=== PATIENT | female | born 1960 | race Caucasian/White ===

== ENCOUNTER 2016-09-12 06:58 | Emergency (ER) | payer OTHER ==
[2016-09-12] MEDS ORDERED: METHOCARBAMOL 1,000 MG/10 ML VIAL (J2800) As Ordered ONE (08:23)
[2016-09-12] MEDS ORDERED: KETOROLAC 30 MG/ML VIAL (J1885) As Ordered ONE (08:23)
--- NOTE | 2016-09-12 09:50 | EDDOCDS ---
Nurse's Notes [facility] Name: Megan Zamora Age: 56 yrs Sex: Female : 1960 Arrival Date: 09/12/2016 Time: 06:58 Bed TR7 Private MD: Mando Sue E. Diagnosis: Low back pain Presentation: 09/12 07:05 Presenting complaint: Patient states: Low back pain began after lifting three days ago. mlb1 Acute neurological deficits are not present. Mechanism of Injury: Lifting. Adult Sepsis Screening: The patient does not have new or worsening altered mentation. Patient's respiratory rate is less than 22. Systolic blood pressure is greater than 100. Patient has a qSOFA score of 0- Negative Sepsis Screen. Suicide/Homicide risk assessment- the patient denies having any suicidal and/or homicidal ideations and does not present with any other emotional, behavioral or mental health complaints. Status: Patient is not a track service worker or dependent. Transition of care: patient was not received from another setting of care. 07:05 Acuity: BEBO Level 4 mlb1 07:05 Method Of Arrival: Walkin/Carried/Asstd mlb1 Triage Assessment: 07:11 General: Appears uncomfortable, Behavior is appropriate for age, cooperative. Pain: mlb1 Location: low back area Pain currently is 10 out of 10 on a pain scale. HIV screening NA for this visit Offered previously. QUALITY CONTROL LAB TECH: 07:10 LMP N/A - Post-menopause mlb1 Historical: - Allergies: PENICILLINS (itching); - Home Meds: 1. chlorthalidone 25 mg Oral tab 1 tab once daily 2. enalapril maleate 20 mg Oral tab 1 tab once daily 3. fluoxetine 20 mg oral cap 1 cap once daily 4. duloxetine 60 mg Oral cpDR 1 cap once daily 5. omeprazole 40 mg Oral cpDR 2 times per day 6. amlodipine 5 mg Oral tab 1 tab once daily 7. Lialda 1.2 gram oral TbEC 3 tabs once daily 8. Aleve 220 mg Oral tab 1 tab every 12 hours (Last dose: 09/11/2016 20:00) - PMHx: Depression; GERD; Hypertension; Ulcerative Colitis; - PSHx: Appendectomy; Tonsillectomy; - Social history: Smoking status: Patient states was never smoker of tobacco. No barriers to communication noted, The patient speaks fluent Wolof, Speaks appropriately for age. - Family history: Not pertinent. - : The pt / caregiver states he / she is not on anticoagulants. Home medication list is obtained from the patient. - Exposure Risk Screening:: None identified. Screenin:48 Screening information is obtained from the patient. Fall risk: No risks identified. dsf Assistance ADL's: requires no assistance with activities of daily living. Abuse/DV Screen: The patient / caregiver reports he/she is: not in a situation that causes fear, pain or injury. Nutritional screening: No deficits noted. Advance Directives: Currently, there is no health care proxy. home support is adequate. Assessment: 09:48 General: Appears in no apparent distress, Behavior is appropriate for age, cooperative. dsf Neurological: Level of Consciousness is awake, alert. Cardiovascular: Capillary refill < 3 seconds. Respiratory: Airway is patent Respiratory effort is even, unlabored, Respiratory pattern is regular, symmetrical. Derm: Skin is pink, warm & dry. Musculoskeletal: Reports pain in low back area. Vital Signs: 07:10 BP 120 / 72; Pulse 112; Resp 16; Temp 98.1(TE); Pulse Ox 100% on R/A; Weight 89.81 kg mlb1 (R); Height 5 ft. 4 in. (162.56 cm) (R); Pain 10/10; 09:01 BP 122 / 75; Pulse 75; Resp 18; Temp 97.4(O); Pulse Ox 98% on R/A; Pain 10/10; ct3 07:10 Body Mass Index 33.99 (89.81 kg, 162.56 cm) [facility] ED Course: 06:59 Patient visited by Almita Butler. lja 06:59 Mando Sue is Private Physician. lja 06:59 Patient moved to Waiting lja 07:05 Patient visited by Tde Vences, VIOLETA. mlb1 07:06 Triage Initiated mlb1 07:11 Patient visited by Ted Vences, VIOLETA. mlb1 07:58 Jean Crespo PA is PHCP. btw 07:58 Julissa Paiz MD is Attending Physician. btw 07:58 Patient visited by Jean Crespo PA. btw 07:58 Patient moved to Triage 2 btw 08:30 Patient moved to PD2 / 27 mlb1 09:02 Patient visited by Christen Tovar PCA. ct3 09:35 Mando Sue is Referral Physician. btw 09:48 The patient / caregiver is instructed regarding the plan of care and ED course. dsf 09:48 No IV's were initiated during this patient's visit. No procedures done that require dsf assistance. 09:49 Patient moved to TR7 ct3 Administered Medications: 08:30 Drug: ketorolac 30 mg [ketorolac 30 mg/mL (1 mL) injection solution (1 mL)] Route: IM; mlb1 Site: left deltoid; 08:30 Drug: Robaxin 250 mg [Robaxin 100 mg/mL injection solution (2.5 mL)] Route: IM; Site: mlb1 right gluteus; Order Results: There are currently no results for this order. Outcome: 09:36 Discharge ordered by Provider. btw 09:48 Discharge Assessment: Patient awake, alert and oriented x 3. No cognitive and/or dsf functional deficits noted. Patient verbalized understanding of disposition instructions. patient administered narcotics - no. The following High Risk Discharge criteria are identified: None. Discharged to home ambulatory. Condition: stable. Discharge instructions given to patient, Instructed on discharge instructions, follow up and referral plans. medication usage, no driving heavy equipment, Demonstrated understanding of instructions, medications, Pt was receptive of discharge instructions/ teaching. Prescriptions given X 2. No special radiology studies were completed. Property sent home with patient. 09:49 Patient left the ED. dsf Signatures: Ted Vences RN RN mlb1 Jean Crespo PA PA btw Christen Tovar PCA REFRIGERATION OPERATOR ct3 Marlyn Luo RN RN dsf Almita Butler MTDD
--- NOTE | 2016-09-12 09:50 | EDDOCDS ---
Physician Documentation [facility] Name: Megan Zamora Age: 56 yrs Sex: Female : 1960 Arrival Date: 09/12/2016 Time: 06:58 Bed TR7 Private MD: Mando Sue E. Disposition: 09/12/16 09:36 Discharged to Home/Self Care. Impression: Low back pain. - Condition is Stable. - Discharge Instructions: Back Injury Prevention, Opig-[id number], Back Pain, Adult, Eife-cx-Ymmh. - Prescriptions for Medrol (Sanchez) 4 mg Oral Tablets, Dose Pack - take 1 Pack by ORAL route as directed - follow package instructions; 1 packet. Robaxin- 750 750 mg Oral Tablet - take 1 tablet by ORAL route every 6 hours As needed; 40 tablet. - Medication Reconciliation, Local Pharmacy Hours form. - Follow up: Mando Sue; When: Call to arrange an appointment; Reason: Further diagnostic work-up, Recheck today's complaints, Continuance of care. - Problem is an acute exacerbation. - Symptoms have improved. Historical: - Allergies: PENICILLINS (itching); - Home Meds: 1. chlorthalidone 25 mg Oral tab 1 tab once daily 2. enalapril maleate 20 mg Oral tab 1 tab once daily 3. fluoxetine 20 mg oral cap 1 cap once daily 4. duloxetine 60 mg Oral cpDR 1 cap once daily 5. omeprazole 40 mg Oral cpDR 2 times per day 6. amlodipine 5 mg Oral tab 1 tab once daily 7. Lialda 1.2 gram oral TbEC 3 tabs once daily 8. Aleve 220 mg Oral tab 1 tab every 12 hours (Last dose: 09/11/2016 20:00) - PMHx: Depression; GERD; Hypertension; Ulcerative Colitis; - PSHx: Appendectomy; Tonsillectomy; - Social history: Smoking status: Patient states was never smoker of tobacco. No barriers to communication noted, The patient speaks fluent Irish, Speaks appropriately for age. - Family history: Not pertinent. - : The pt / caregiver states he / she is not on anticoagulants. Home medication list is obtained from the patient. - Exposure Risk Screening:: None identified. 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 4 in. (162.56 cm) (R); Pain 10; 09:01 BP 122 / 75; Pulse 75; Resp 18; Temp 97.4(O); Pulse Ox 98% on R/A; Pain 10; ct3 07:10 Body Mass Index 33.99 (89.81 kg, 162.56 cm) mlb1 MDM: 08:03 ketorolac 30 mg IM once ordered. btw 08:03 Robaxin 250 mg IM once ordered. btw 08:44 Financial registration complete. lg Administered Medications: 08:30 Drug: ketorolac 30 mg [ketorolac 30 mg/mL (1 mL) injection solution (1 mL)] Route: IM; mlb1 Site: left deltoid; 08:30 Drug: Robaxin 250 mg [Robaxin 100 mg/mL injection solution (2.5 mL)] Route: IM; Site: mlb1 right gluteus; Signatures: Malik Garcias, Reg Reg lg Ted Vences RN RN mlb1 Jean Crespo PA PA btw Marlyn Luo,RN RN dsf MTDD
--- NOTE | 2016-09-14 10:50 | EDDOCDS ---
Nurse's Notes [facility] Name: Megan Zamora Age: 56 yrs Sex: Female : 1960 Arrival Date: 09/12/2016 Time: 06:58 Bed TR7 Private MD: Mando Sue E. Diagnosis: Low back pain Presentation: 09/12 07:05 Presenting complaint: Patient states: Low back pain began after lifting three days ago. mlb1 Acute neurological deficits are not present. Mechanism of Injury: Lifting. Adult Sepsis Screening: The patient does not have new or worsening altered mentation. Patient's respiratory rate is less than 22. Systolic blood pressure is greater than 100. Patient has a qSOFA score of 0- Negative Sepsis Screen. Suicide/Homicide risk assessment- the patient denies having any suicidal and/or homicidal ideations and does not present with any other emotional, behavioral or mental health complaints. Status: Patient is not a security services manager or dependent. Transition of care: patient was not received from another setting of care. 07:05 Acuity: BEBO Level 4 mlb1 07:05 Method Of Arrival: Walkin/Carried/Asstd mlb1 Triage Assessment: 07:11 General: Appears uncomfortable, Behavior is appropriate for age, cooperative. Pain: mlb1 Location: low back area Pain currently is 10 out of 10 on a pain scale. HIV screening NA for this visit Offered previously. 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 chlorthalidone 25 mg Oral tab 1 tab once daily 2. enalapril maleate 20 mg Oral tab 1 tab once daily 3. fluoxetine 20 mg oral cap 1 cap once daily 4. duloxetine 60 mg Oral cpDR 1 cap once daily 5. omeprazole 40 mg Oral cpDR 2 times per day 6. amlodipine 5 mg Oral tab 1 tab once daily 7. Lialda 1.2 gram oral TbEC 3 tabs once daily 8. Aleve 220 mg Oral tab 1 tab every 12 hours (Last dose: 09/11/2016 20:00) - PMHx: Depression; GERD; Hypertension; Ulcerative Colitis; - PSHx: Appendectomy; Tonsillectomy; - Social history: Smoking status: Patient states was never smoker of tobacco. No barriers to communication noted, The patient speaks fluent German, Speaks appropriately for age. - Family history: Not pertinent. - : The pt / caregiver states he / she is not on anticoagulants. Home medication list is obtained from the patient. - Exposure Risk Screening:: None identified. Screenin:48 Screening information is obtained from the patient. Fall risk: No risks identified. dsf Assistance ADL's: requires no assistance with activities of daily living. Abuse/DV Screen: The patient / caregiver reports he/she is: not in a situation that causes fear, pain or injury. Nutritional screening: No deficits noted. Advance Directives: Currently, there is no health care proxy. home support is adequate. Assessment: 09:48 General: Appears in no apparent distress, Behavior is appropriate for age, cooperative. dsf Neurological: Level of Consciousness is awake, alert. Cardiovascular: Capillary refill < 3 seconds. Respiratory: Airway is patent Respiratory effort is even, unlabored, Respiratory pattern is regular, symmetrical. Derm: Skin is pink, warm & dry. Musculoskeletal: Reports pain in low back area. Vital Signs: 07:10 BP 120 / 72; Pulse 112; Resp 16; Temp 98.1(TE); Pulse Ox 100% on R/A; Weight 89.81 kg mlb1 (R); Height 5 ft. 4 in. (162.56 cm) (R); Pain 10/10; 09:01 BP 122 / 75; Pulse 75; Resp 18; Temp 97.4(O); Pulse Ox 98% on R/A; Pain 10/10; ct3 07:10 Body Mass Index 33.99 (89.81 kg, 162.56 cm) [facility] ED Course: 06:59 Patient visited by Almita Butler. lja 06:59 Mando Sue is Private Physician. lja 06:59 Patient moved to Waiting lja 07:05 Patient visited by Ted Vences, VIOLETA. mlb1 07:06 Triage Initiated mlb1 07:11 Patient visited by Ted Vences, VIOLETA. mlb1 07:58 Jean Crespo PA is PHCP. btw 07:58 Julissa Paiz MD is Attending Physician. btw 07:58 Patient visited by Jean Crespo PA. btw 07:58 Patient moved to Triage 2 btw 08:30 Patient moved to PD2 / 27 mlb1 09:02 Patient visited by Christen Tovar PCA. ct3 09:35 Mando Sue is Referral Physician. btw 09:48 The patient / caregiver is instructed regarding the plan of care and ED course. dsf 09:48 No IV's were initiated during this patient's visit. No procedures done that require dsf assistance. 09:49 Patient moved to TR7 ct3 11:40 [facility] Payment Agreement was scanned into [employer] and attached to record. lg 14:56 T-Sheet-- Draft Copy was scanned into [employer] and attached to record. gb Administered Medications: 08:30 Drug: ketorolac 30 mg [ketorolac 30 mg/mL (1 mL) injection solution (1 mL)] Route: IM; mlb1 Site: left deltoid; 08:30 Drug: Robaxin 250 mg [Robaxin 100 mg/mL injection solution (2.5 mL)] Route: IM; Site: mlb1 right gluteus; Order Results: There are currently no results for this order. Outcome: 09:36 Discharge ordered by Provider. btw 09:48 Discharge Assessment: Patient awake, alert and oriented x 3. No cognitive and/or dsf functional deficits noted. Patient verbalized understanding of disposition instructions. patient administered narcotics - no. The following High Risk Discharge criteria are identified: None. Discharged to home ambulatory. Condition: stable. Discharge instructions given to patient, Instructed on discharge instructions, follow up and referral plans. medication usage, no driving heavy equipment, Demonstrated understanding of instructions, medications, Pt was receptive of discharge instructions/ teaching. Prescriptions given X 2. No special radiology studies were completed. Property sent home with patient. 09:49 Patient left the ED. dsf Signatures: Gill Jurado, Reg Reg gb Malik Garcias, Reg Reg lg Ted Vences RN RN mlb1 Jean Crespo PA PA btw Christen Tovar PCA HORSE RACING ANALYST ct3 Marlyn Luo RN RN dsf Almita Butler Chart Complete MTDD
--- NOTE | 2016-09-14 10:50 | EDDOCDS ---
Physician Documentation [facility] Name: Megan Zamora Age: 56 yrs Sex: Female : 1960 Arrival Date: 09/12/2016 Time: 06:58 Bed TR7 Private MD: Mando Sue E. Disposition: 09/12/16 09:36 Discharged to Home/Self Care. Impression: Low back pain. - Condition is Stable. - Discharge Instructions: Back Injury Prevention, Diev-ql-Yxmg, Back Pain, Adult, Wfym-vv-Jvtl. - Prescriptions for Medrol (Sanchez) 4 mg Oral Tablets, Dose Pack - take 1 Pack by ORAL route as directed - follow package instructions; 1 packet. Robaxin- 750 750 mg Oral Tablet - take 1 tablet by ORAL route every 6 hours As needed; 40 tablet. - Medication Reconciliation, Local Pharmacy Hours form. - Follow up: Mando Sue; When: Call to arrange an appointment; Reason: Further diagnostic work-up, Recheck today's complaints, Continuance of care. - Problem is an acute exacerbation. - Symptoms have improved. Historical: - Allergies: PENICILLINS (itching); - Home Meds: 1. chlorthalidone 25 mg Oral tab 1 tab once daily 2. enalapril maleate 20 mg Oral tab 1 tab once daily 3. fluoxetine 20 mg oral cap 1 cap once daily 4. duloxetine 60 mg Oral cpDR 1 cap once daily 5. omeprazole 40 mg Oral cpDR 2 times per day 6. amlodipine 5 mg Oral tab 1 tab once daily 7. Lialda 1.2 gram oral TbEC 3 tabs once daily 8. Aleve 220 mg Oral tab 1 tab every 12 hours (Last dose: 09/11/2016 20:00) - PMHx: Depression; GERD; Hypertension; Ulcerative Colitis; - PSHx: Appendectomy; Tonsillectomy; - Social history: Smoking status: Patient states was never smoker of tobacco. No barriers to communication noted, The patient speaks fluent Amharic, Speaks appropriately for age. - Family history: Not pertinent. - : The pt / caregiver states he / she is not on anticoagulants. Home medication list is obtained from the patient. - Exposure Risk Screening:: None identified. FUR POLISHER: 09/12 07:10 LMP N/A - Post-menopause mlb1 Vital Signs: 07:10 BP 120 / 72; Pulse 112; Resp 16; Temp 98.1(TE); Pulse Ox 100% on R/A; Weight 89.81 kg / mlb1 198 lbs (R); Height 5 ft. 4 in. (162.56 cm) (R); Pain 10/10; 09:01 BP 122 / 75; Pulse 75; Resp 18; Temp 97.4(O); Pulse Ox 98% on R/A; Pain 10/10; ct3 07:10 Body Mass Index 33.99 (89.81 kg, 162.56 cm) mlb1 MDM: 08:03 ketorolac 30 mg IM once ordered. btw 08:03 Robaxin 250 mg IM once ordered. btw 08:44 Financial registration complete. lg 11:40 [facility] Payment Agreement was scanned into [employer] and attached to record. lg 14:56 T-Sheet-- Draft Copy was scanned into [employer] and attached to record. gb Administered Medications: 08:30 Drug: ketorolac 30 mg [ketorolac 30 mg/mL (1 mL) injection solution (1 mL)] Route: IM; mlb1 Site: left deltoid; 08:30 Drug: Robaxin 250 mg [Robaxin 100 mg/mL injection solution (2.5 mL)] Route: IM; Site: mlb1 right gluteus; Signatures: Gill Jurado, Reg Reg gb Malik Garcias, Reg Reg lg Ted Vences RN RN mlb1 Jean Crespo PA PA btw Marlyn LuoRN RN dsf The chart was reviewed and I authenticate all verbal orders and agree with the evaluation and treatment provided.Attachments: 11:40 [facility] Payment Agreement lg 14:56 T-Sheet-- Draft Copy gb Chart Complete MTDD
--- NOTE | 2016-09-14 10:50 | EDDOCDS ---
Physician Documentation [facility] Name: Megan Zamora Age: 56 yrs Sex: Female : 1960 Arrival Date: 09/12/2016 Time: 06:58 Bed TR7 Private MD: Mando Sue E. Disposition: 09/12/16 09:36 Discharged to Home/Self Care. Impression: Low back pain. - Condition is Stable. - Discharge Instructions: Back Injury Prevention, Vrod-xn-Yxqs, Back Pain, Adult, Vper-dl-Peiz. - Prescriptions for Medrol (Sanchez) 4 mg Oral Tablets, Dose Pack - take 1 Pack by ORAL route as directed - follow package instructions; 1 packet. Robaxin- 750 750 mg Oral Tablet - take 1 tablet by ORAL route every 6 hours As needed; 40 tablet. - Medication Reconciliation, Local Pharmacy Hours form. - Follow up: Mando Sue; When: Call to arrange an appointment; Reason: Further diagnostic work-up, Recheck today's complaints, Continuance of care. - Problem is an acute exacerbation. - Symptoms have improved. Historical: - Allergies: PENICILLINS (itching); - Home Meds: 1. chlorthalidone 25 mg Oral tab 1 tab once daily 2. enalapril maleate 20 mg Oral tab 1 tab once daily 3. fluoxetine 20 mg oral cap 1 cap once daily 4. duloxetine 60 mg Oral cpDR 1 cap once daily 5. omeprazole 40 mg Oral cpDR 2 times per day 6. amlodipine 5 mg Oral tab 1 tab once daily 7. Lialda 1.2 gram oral TbEC 3 tabs once daily 8. Aleve 220 mg Oral tab 1 tab every 12 hours (Last dose: 09/11/2016 20:00) - PMHx: Depression; GERD; Hypertension; Ulcerative Colitis; - PSHx: Appendectomy; Tonsillectomy; - Social history: Smoking status: Patient states was never smoker of tobacco. No barriers to communication noted, The patient speaks fluent Serbian, Speaks appropriately for age. - Family history: Not pertinent. - : The pt / caregiver states he / she is not on anticoagulants. Home medication list is obtained from the patient. - Exposure Risk Screening:: None identified. REGRINDER: 09/12 07:10 LMP N/A - Post-menopause mlb1 Vital Signs: 07:10 BP 120 / 72; Pulse 112; Resp 16; Temp 98.1(TE); Pulse Ox 100% on R/A; Weight 89.81 kg / mlb1 198 lbs (R); Height 5 ft. 4 in. (162.56 cm) (R); Pain 10/10; 09:01 BP 122 / 75; Pulse 75; Resp 18; Temp 97.4(O); Pulse Ox 98% on R/A; Pain 10/10; ct3 07:10 Body Mass Index 33.99 (89.81 kg, 162.56 cm) mlb1 MDM: 08:03 ketorolac 30 mg IM once ordered. btw 08:03 Robaxin 250 mg IM once ordered. btw 08:44 Financial registration complete. lg 11:40 [facility] Payment Agreement was scanned into [employer] and attached to record. lg 14:56 T-Sheet-- Draft Copy was scanned into [employer] and attached to record. gb Administered Medications: 08:30 Drug: ketorolac 30 mg [ketorolac 30 mg/mL (1 mL) injection solution (1 mL)] Route: IM; mlb1 Site: left deltoid; 08:30 Drug: Robaxin 250 mg [Robaxin 100 mg/mL injection solution (2.5 mL)] Route: IM; Site: mlb1 right gluteus; Signatures: Gill Jurado, Reg Reg gb Malik Garcias, Reg Reg lg Ted Vences RN RN mlb1 Jean Crespo PA PA btw Marlyn LuoRN RN dsf The chart was reviewed and I authenticate all verbal orders and agree with the evaluation and treatment provided.Attachments: 11:40 [facility] Payment Agreement lg 14:56 T-Sheet-- Draft Copy gb Chart Complete MTDD
== END 2016-09-12 09:49 | disposition home or self-care (01) ==
LOC: M ED 06:58
DX: M54.5 Low back pain (principal); G89.29 Other chronic pain; I10 Essential (primary) hypertension; F32.9 Major depressive disorder, single episode, unspecified; K21.9 Gastro-esophageal reflux disease without esophagitis; K51.90 Ulcerative colitis, unspecified, without complications; Z79.899 Other long term (current) drug therapy; Z88.0 Allergy status to penicillin
CPT/HCPCS: 96372; 99283; J1885; J2800

== ENCOUNTER → 2016-09-25 | Outpatient (CLI) | payer OTHER ==
--- NOTE | 2016-09-25 12:39 | REP ---
LUMBAR SPINE, FIVE VIEWS: HISTORY: Back pain. COMPARISON: 10/16/2015. There is no acute fracture. The L2-3 through L5-S1 intervertebral discs are decreased in height. Vacuum phenomenon is present at the L5-S1 level. These findings are consistent with disc degeneration. Osteophytes are present on L2-S1. There is narrowing of the L4-5 and L5-S1 facet joints. There are 3 mm of grade 1 spondylolisthesis of L4 on 5. IMPRESSION: Degenerative change as described above. Signed by Aubrey Bianchi MD 09/25/2016 12:46 P
--- NOTE | 2016-09-26 06:45 | REP ---
Clinical: Spondylosis Technique: AP, Caudal and cephalic, and lateral view. Findings: Bilateral sacroiliac joints demonstrate mild symmetric age-related periarticular sclerosis and essentially normal for age. Impression: Age-related changes. Signed by Giovany Elias MD 09/26/2016 06:36 A
== END ==
LOC: M SMT 10:56
PROVIDERS: ATTEND Family Medicine
DX: M47.816 Spondylosis without myelopathy or radiculopathy, lumbar region (principal); M51.36 Other intervertebral disc degeneration, lumbar region; M51.37 Other intervertebral disc degeneration, lumbosacral region

== ENCOUNTER → 2017-01-21 | Outpatient (CLI) | payer OTHER ==
[2017-01-21 13:19] LABS: BASO % 0.8 % (0.0-1.0); EOS # 0.2 K/mm3 (0.0-0.50); EOS % 2.6 % (0.0-3.0); LARGE UNSTAINED CELL # 0.1 K/mm3 (0.0-0.4); LARGE UNSTAINED CELL % 1.9 % (0.0-4.0); LYMPH # 2.5 K/mm3 (1.5-4.5); LYMPH % 37.4 % (24.0-44.0); MEAN CORPUSCULAR HEMOGLOBIN 30.9 pg (27.0-33.0); MEAN CORPUSCULAR HGB CONC 34.1 g/dl (32.0-36.5); MEAN CORPUSCULAR VOLUME 90.6 fl (80.0-96.0); MONO # 0.5 K/mm3 (0.0-0.8); MONO % 7.1 % (0.0-5.0); NEUTROPHILS # 3.3 K/mm3 (1.8-7.7); NEUTROPHILS % 50.2 % (36.0-66.0); PLATELET COUNT, AUTOMATED 286 k/mm3 (150-450); RED CELL DISTRIBUTION WIDTH 12.4 % (11.5-14.5); WHITE BLOOD COUNT 6.5 K/mm3 (4.0-10.0)
[2017-01-21 13:36] LABS: ALBUMIN 3.4 GM/DL (3.2-5.2); ALBUMIN/GLOBULIN RATIO 0.97 (1.00-1.93); ALKALINE PHOSPHATASE 57 U/L (45-117); ALT/SGPT 22 U/L (12-78); ANION GAP 9 MEQ/L (8-16); AST/SGOT 13 U/L (15-37); BILIRUBIN,TOTAL 0.5 MG/DL (0.2-1.0); BLOOD UREA NITROGEN 17 MG/DL (7-18); CALCIUM LEVEL 8.9 MG/DL (8.5-10.1); CARBON DIOXIDE LEVEL 32 MEQ/L (21-32); CHLORIDE LEVEL 94 MEQ/L (98-107); CREATININE FOR GFR 0.69 MG/DL (0.55-1.02); FERRITIN 29 NG/ML (8-252); GLOMERULAR FILTRATION RATE > 60.0 (>51); GLUCOSE, FASTING 99 MG/DL (70-105); POTASSIUM SERUM 3.5 MEQ/L (3.5-5.1); SODIUM LEVEL 135 MEQ/L (136-145); TOTAL IRON BINDING CAPACITY 400 UG/DL (250-450); TOTAL PROTEIN 6.9 GM/DL (6.4-8.2)
== END ==
LOC: M SMT 07:44
PROVIDERS: ATTEND Family Medicine
DX: R73.01 Impaired fasting glucose (principal); I10 Essential (primary) hypertension; D50.9 Iron deficiency anemia, unspecified

== ENCOUNTER → 2017-02-18 | Outpatient (CLI) | payer OTHER ==
--- NOTE | 2017-02-18 14:09 | REPMRS ---
Patient History The patient states she has not had a clinical breast exam in over a year. Family history of breast cancer in maternal aunt at age 80. Took hormonal contraceptives for 10 years. Digital Woman Screen Mammo: February 18, 2017 - Exam #: [id number] Bilateral CC and MLO view(s) were taken. Technologist: Jaky Burrell, Technologist Prior study comparison: July 25, 2015, digital woman screen mammo performed at [facility]. March 26, 2014, bilateral bilat screen digital mammo, performed at [facility] ([facility] FINDINGS: There are scattered fibroglandular densities. There has been no change in the appearance of the mammogram from the prior studies. There is a mild amount of residual fibroglandular tissue which is fairly symmetric. There is no interval development of dominant mass, architectural distortion, or clustered microcalcification suggestive of malignancy. ASSESSMENT: BI-RADS/ACR category 1 mammogram. Negative. Recommendation Routine screening mammogram in 1 year (for women over age 40). This mammogram was interpreted with the aid of an FDA-approved computer-aided dectection system. Electronically Signed By: Marek Knowles MD 02/18/17 [id number]
== END ==
LOC: M WHC 12:50
PROVIDERS: ATTEND Family Medicine
DX: Z12.31 Encounter for screening mammogram for malignant neoplasm of breast (principal); Z92.0 Personal history of contraception

== ENCOUNTER 2017-02-27 10:48 | Emergency (ER) | payer OTHER ==
[~2017-02-27] VITALS: Ht 162.6 cm; Wt 86.4 kg
[2017-02-27] MEDS ORDERED: MORPHINE 4 MG/ML 1ML SYRINGE IV ONE (11:15)
[2017-02-27] MEDS ORDERED: ONDANSETRON 4MG/2ML VIAL (J2405) IV ONE (11:15)
[2017-02-27] MEDS ORDERED: NASA1SPR (11:16)
[2017-02-27] MEDS ORDERED: METH75TA (11:16)
[2017-02-27] MEDS ORDERED: TIZA4CAP3 (11:16)
[2017-02-27] MEDS ORDERED: APRI0.37 (11:16)
[2017-02-27] MEDS ORDERED: AMLO5TAB2 (11:16)
[2017-02-27] MEDS ORDERED: FLUO20CA19 (11:16)
[2017-02-27] MEDS ORDERED: SUCR1TAB56 (11:16)
[2017-02-27] MEDS ORDERED: CHLO125TA (11:16)
[2017-02-27] MEDS ORDERED: HUMI40KI2 (11:16)
[2017-02-27] MEDS ORDERED: DULO1CAP3 (11:16)
[2017-02-27] MEDS ORDERED: MESA50SU (11:16)
[2017-02-27] MEDS ORDERED: ENAL20TA (11:16)
[2017-02-27] MEDS ORDERED: CEFD1CAP8 (11:16)
[2017-02-27] MEDS ORDERED: METH4PACK (11:16)
[2017-02-27] MEDS ORDERED: OMEP40CA2 (11:16)
[2017-02-27] MEDS ORDERED: LOSA100T36 (11:16)
--- NOTE | 2017-02-27 12:10 | REP ---
RIGHT ANKLE SERIES, FOUR VIEWS There is no evidence of an acute fracture, dislocation or intrinsic bone disease. The ankle mortise is anatomic. IMPRESSION: No fracture or dislocation. Signed by Marek Knowles MD 02/28/2017 05:08 P
[2017-02-27] MEDS ORDERED: NORCOTAB PO (12:30)
[2017-02-27 12:32] VITALS: BP 118/70
== END 2017-02-27 12:52 | disposition home or self-care (01) ==
LOC: EDBD 10:48 → M ED 12:08
DX: S93.401A Sprain of unspecified ligament of right ankle, initial encounter (principal); W10.8XXA Fall (on) (from) other stairs and steps, initial encounter; Y92.099 Unspecified place in other non-institutional residence as the place of occurrence of the external cause; Y93.01 Activity, walking, marching and hiking; Y99.9 Unspecified external cause status

== ENCOUNTER → 2017-04-01 | Outpatient (CLI) | payer OTHER ==
[~2017-04-01] MED LIST: AMLO5TAB2; APRI0.37; CEFD1CAP8; CHLO125TA; DULO1CAP3; ENAL20TA; FLUO20CA19; HUMI40KI2; LOSA100T36; MESA50SU; METH4PACK; METH75TA; NASA1SPR; NORCOTAB PO; OMEP40CA2; SUCR1TAB56; TIZA4CAP3
[2017-04-01 14:31] LABS: MEAN CORPUSCULAR HEMOGLOBIN 29.9 pg (27.0-33.0); MEAN CORPUSCULAR HGB CONC 33.9 g/dl (32.0-36.5); MEAN CORPUSCULAR VOLUME 88.4 fl (80.0-96.0); RED CELL DISTRIBUTION WIDTH 12.8 % (11.5-14.5); WHITE BLOOD COUNT 6.1 K/mm3 (4.0-10.0)
[2017-04-01 14:42] LABS: ALBUMIN 3.5 GM/DL (3.2-5.2); ALBUMIN/GLOBULIN RATIO 1.03 (1.00-1.93); ALKALINE PHOSPHATASE 65 U/L (45-117); ALT/SGPT 21 U/L (12-78); ANION GAP 10 MEQ/L (8-16); AST/SGOT 13 U/L (15-37); BILIRUBIN,DIRECT 0.1 MG/DL (0.0-0.2); BILIRUBIN,TOTAL 0.4 MG/DL (0.2-1.0); BLOOD UREA NITROGEN 12 MG/DL (7-18); CALCIUM LEVEL 9.1 MG/DL (8.5-10.1); CARBON DIOXIDE LEVEL 25 MEQ/L (21-32); CHLORIDE LEVEL 96 MEQ/L (98-107); GLOMERULAR FILTRATION RATE > 60.0 (>51); GLUCOSE, FASTING 95 MG/DL (70-105); POTASSIUM SERUM 3.7 MEQ/L (3.5-5.1); SODIUM LEVEL 131 MEQ/L (136-145); TOTAL PROTEIN 6.9 GM/DL (6.4-8.2)
== END ==
LOC: M SMT 10:52
PROVIDERS: ATTEND Internal Medicine Gastroenterology
DX: K51.20 Ulcerative (chronic) proctitis without complications (principal)

== ENCOUNTER → 2017-05-23 | Outpatient (CLI) | payer OTHER ==
[2017-05-23 13:48] LABS: ALBUMIN 3.8 GM/DL (3.2-5.2); ALKALINE PHOSPHATASE 71 U/L (45-117); ALT/SGPT 22 U/L (12-78); ANION GAP 12 MEQ/L (8-16); AST/SGOT 9 U/L (15-37); BASO # 0.1 K/mm3 (0.0-0.2); BASO % 2.1 % (0.0-1.0); BILIRUBIN,TOTAL 0.5 MG/DL (0.2-1.0); BLOOD UREA NITROGEN 18 MG/DL (7-18); CALCIUM LEVEL 9.6 MG/DL (8.5-10.1); CARBON DIOXIDE LEVEL 27 MEQ/L (21-32); CHLORIDE LEVEL 100 MEQ/L (98-107); CHOLESTEROL LEVEL 241 MG/DL (<200); CREATININE FOR GFR 0.68 MG/DL (0.55-1.02); EOS # 0.1 K/mm3 (0.0-0.50); EOS % 2.1 % (0.0-3.0); FREE T4 1.04 NG/DL (0.76-1.46); GLOMERULAR FILTRATION RATE > 60.0 (>51); GLUCOSE, FASTING 108 MG/DL (70-105); LARGE UNSTAINED CELL # 0.2 K/mm3 (0.0-0.4); LARGE UNSTAINED CELL % 3.3 % (0.0-4.0); LYMPH # 3.2 K/mm3 (1.5-4.5); LYMPH % 48.8 % (24.0-44.0); MAGNESIUM LEVEL 1.9 MG/DL (1.8-2.4); MEAN CORPUSCULAR HEMOGLOBIN 29.7 pg (27.0-33.0); MEAN CORPUSCULAR VOLUME 87.3 fl (80.0-96.0); MONO # 0.4 K/mm3 (0.0-0.8); MONO % 6.7 % (0.0-5.0); NEUTROPHILS # 2.3 K/mm3 (1.8-7.7); NEUTROPHILS % 36.9 % (36.0-66.0); PLATELET COUNT, AUTOMATED 325 k/mm3 (150-450); POTASSIUM SERUM 3.3 MEQ/L (3.5-5.1); RED CELL DISTRIBUTION WIDTH 13.3 % (11.5-14.5); SODIUM LEVEL 139 MEQ/L (136-145); TOTAL PROTEIN 7.6 GM/DL (6.4-8.2); TRIGLYCERIDES LEVEL 146 MG/DL (<150); WHITE BLOOD COUNT 6.2 K/mm3 (4.0-10.0)
== END ==
LOC: M SMT 08:51
PROVIDERS: ATTEND Family Medicine
DX: R73.01 Impaired fasting glucose (principal); I10 Essential (primary) hypertension

== ENCOUNTER → 2017-09-23 | Outpatient (CLI) | payer MEDICARE ==
[2017-09-23 13:59] LABS: HEMATOCRIT 41.4 % (36.0-47.0)
[2017-09-23 14:15] LABS: ALBUMIN 3.7 GM/DL (3.2-5.2); ALKALINE PHOSPHATASE 62 U/L (45-117); ALT/SGPT 23 U/L (12-78); ANION GAP 8 MEQ/L (8-16); AST/SGOT 12 U/L (7-37); BILIRUBIN,TOTAL 0.5 MG/DL (0.2-1.0); BLOOD UREA NITROGEN 22 MG/DL (7-18); C REACTIVE PROTEIN QUANTITATIV 0.43 MG/DL (0.00-0.30); CALCIUM LEVEL 9.1 MG/DL (8.5-10.1); CARBON DIOXIDE LEVEL 30 MEQ/L (21-32); CHLORIDE LEVEL 99 MEQ/L (98-107); CHOLESTEROL LEVEL 213 MG/DL (<200); CHOLESTEROL RISK RATIO 4.437 (<5); CPK CREATINE PHOSPHOKINASE 82 U/L (26-192); CREATININE FOR GFR 0.67 MG/DL (0.55-1.02); GLOMERULAR FILTRATION RATE > 60.0 (>51); GLUCOSE, FASTING 110 MG/DL (70-105); HDL CHOLESTEROL 48 MG/DL (>40); LDL CHOLESTEROL 143.6 MG/DL (<100); NON-HDL-C 165 MG/DL; POTASSIUM SERUM 3.7 MEQ/L (3.5-5.1); SODIUM LEVEL 137 MEQ/L (136-145); TOTAL PROTEIN 7.4 GM/DL (6.4-8.2); TRIGLYCERIDES LEVEL 107 MG/DL (<150)
[2017-09-23 14:24] LABS: TOTAL 25(OH) VITAMIN D 23.2 NG/ML (30.0-100.0); VITAMIN B12 LEVEL 1055 PG/ML (247-911)
[2017-09-23 14:25] LABS: PTH INTACT 46.2 PG/ML (14.0-72.0)
[2017-09-23 14:43] LABS: ESTIMATED AVERAGE GLUCOSE 111 MG/DL (60-110); HEMOGLOBIN A1c 5.5 %
[2017-09-24 11:02] LABS: PRETREATED FOLATE FOR RBCFOL 11.7 NG/ML; RBC FOLATE 593.5 NG/ML (280-791)
== END ==
LOC: M SMT 08:18
DX: E78.5 Hyperlipidemia, unspecified (principal); E55.9 Vitamin D deficiency, unspecified; R73.01 Impaired fasting glucose; E53.8 Deficiency of other specified B group vitamins
CPT/HCPCS: 82550

== ENCOUNTER → 2017-09-27 | Outpatient (CLI) | payer MEDICARE | LOC: M WHC 09:18 | DX: K51.20 Ulcerative (chronic) proctitis without complications (principal) | CPT/HCPCS: 77080 ==

== ENCOUNTER → 2017-10-08 | Outpatient (CLI) | payer MEDICARE ==
[~2017-10-08] MED LIST changes: -AMLO5TAB2; -APRI0.37; -CEFD1CAP8; -CHLO125TA; -DULO1CAP3; -ENAL20TA; -FLUO20CA19; -HUMI40KI2; +ISOVUE-370 76% 100ML VIAL (Q9967) As Ordered; -LOSA100T36; -MESA50SU; -METH4PACK; -METH75TA; -NASA1SPR; -NORCOTAB PO; -OMEP40CA2; -SUCR1TAB56; -TIZA4CAP3
== END ==
LOC: M RAD 15:03
DX: R53.1 Weakness (principal)
CPT/HCPCS: Q9967

== ENCOUNTER → 2018-01-11 | Outpatient (REF) | payer MEDICARE ==
[2018-01-11 19:52] LABS: APPEARANCE, URINE HAZY (CLEAR); BACTERIA, URINE AUTO 2+ (NEGATIVE); BILIRUBIN, URINE AUTO NEGATIVE (NEGATIVE); BLOOD, URINE BLOOD NEGATIVE (NEGATIVE); COLOR, URINE YELLOW (YELLOW); GLUCOSE, URINE (UA) AUTO NEGATIVE (NEGATIVE); KETONE, URINE AUTO NEGATIVE (NEGATIVE); LEUKOCYTE ESTERASE, URINE AUTO 1+ (NEGATIVE); MUCUS, URINE SMALL (NEGATIVE); NITRITE, URINE AUTO POSITIVE (NEGATIVE); PROTEIN, URINE AUTO NEGATIVE (NEGATIVE); RBC, URINE AUTO 6 /HPF (0-3); SPECIFIC GRAVITY URINE AUTO 1.014 (1.002-1.035); SQUAMOUS EPITHELIAL CELL UR AU 0 /HPF (0-6); UROBILINOGEN, URINE AUTO 0.2 mg/dL (0.0-2.0); WBC, URINE AUTO 10 /HPF (0-3)
== END ==
LOC: M LAB REF 15:25
DX: R30.0 Dysuria (principal)
CPT/HCPCS: 81001

== ENCOUNTER → 2018-01-15 | Outpatient (CLI) | payer MEDICARE ==
[2018-01-15 13:57] LABS: ALBUMIN 3.9 GM/DL (3.2-5.2); ALBUMIN/GLOBULIN RATIO 1.11 (1.00-1.93); ALKALINE PHOSPHATASE 77 U/L (45-117); ALT/SGPT 25 U/L (12-78); ANION GAP 10 MEQ/L (8-16); AST/SGOT 19 U/L (7-37); BILIRUBIN,DIRECT 0.1 MG/DL (0.0-0.2); BILIRUBIN,TOTAL 0.4 MG/DL (0.2-1.0); BLOOD UREA NITROGEN 18 MG/DL (7-18); CALCIUM LEVEL 8.9 MG/DL (8.5-10.1); CARBON DIOXIDE LEVEL 27 MEQ/L (21-32); CHLORIDE LEVEL 99 MEQ/L (98-107); GLOMERULAR FILTRATION RATE > 60.0 (>51); GLUCOSE, FASTING 108 MG/DL (70-100); POTASSIUM SERUM 4.2 MEQ/L (3.5-5.1); SODIUM LEVEL 136 MEQ/L (136-145); TOTAL PROTEIN 7.4 GM/DL (6.4-8.2)
[2018-01-15 14:01] LABS: HEMOGLOBIN 14.4 g/dl (12.0-15.5); RED BLOOD COUNT 4.88 10^6/uL (4.00-5.40); WHITE BLOOD COUNT 6.8 10^3/uL (4.0-10.0)
[2018-01-15 14:02] LABS: MEAN CORPUSCULAR HEMOGLOBIN 29.5 pg (27.0-33.0); MEAN CORPUSCULAR HGB CONC 34.3 g/dl (32.0-36.5); MEAN CORPUSCULAR VOLUME 86.1 fl (80.0-96.0); PLATELET COUNT, AUTOMATED 327 10^3/uL (150-450); RED CELL DISTRIBUTION WIDTH 12.5 % (11.5-14.5)
== END ==
LOC: M SMT 08:00
DX: K51.20 Ulcerative (chronic) proctitis without complications (principal)

== ENCOUNTER → 2018-01-15 | Outpatient (CLI) | payer MEDICARE ==
[2018-01-15 13:22] LABS: BASO # 0.1 10^3/uL (0.0-0.2); BASO % 0.7 % (0.0-1.0); EOS # 0.2 10^3/uL (0.0-0.50); EOS % 3.5 % (0.0-3.0); HEMOGLOBIN 14.4 g/dl (12.0-15.5); IMMATURE GRANULOCYTE % 0.3 % (0-3.0); LYMPH # 3.2 10^3/uL (1.5-4.5); LYMPH % 47.1 % (24.0-44.0); MEAN CORPUSCULAR HEMOGLOBIN 29.5 pg (27.0-33.0); MEAN CORPUSCULAR HGB CONC 34.3 g/dl (32.0-36.5); MEAN CORPUSCULAR VOLUME 86.1 fl (80.0-96.0); MONO # 0.6 10^3/uL (0.0-0.8); MONO % 8.4 % (0.0-5.0); NEUTROPHILS # 2.7 10^3/uL (1.8-7.7); PLATELET COUNT, AUTOMATED 327 10^3/uL (150-450); RED BLOOD COUNT 4.88 10^6/uL (4.00-5.40); RED CELL DISTRIBUTION WIDTH 12.5 % (11.5-14.5); WHITE BLOOD COUNT 6.8 10^3/uL (4.0-10.0)
[2018-01-15 14:15] LABS: ALBUMIN 3.9 GM/DL (3.2-5.2); ALBUMIN/GLOBULIN RATIO 1.18 (1.00-1.93); ALKALINE PHOSPHATASE 75 U/L (45-117); ALT/SGPT 22 U/L (12-78); ANION GAP 9 MEQ/L (8-16); AST/SGOT 12 U/L (7-37); BILIRUBIN,TOTAL 0.4 MG/DL (0.2-1.0); BLOOD UREA NITROGEN 19 MG/DL (7-18); CALCIUM LEVEL 9.1 MG/DL (8.5-10.1); CARBON DIOXIDE LEVEL 27 MEQ/L (21-32); CHLORIDE LEVEL 100 MEQ/L (98-107); CHOLESTEROL LEVEL 180 MG/DL (<200); CPK CREATINE PHOSPHOKINASE 107 U/L (26-192); CREATININE FOR GFR 0.72 MG/DL (0.55-1.30); FERRITIN 48 NG/ML (8-252); GLOMERULAR FILTRATION RATE > 60.0 (>51); GLUCOSE, FASTING 106 MG/DL (70-100); HDL CHOLESTEROL 45 MG/DL (>40); LDL CHOLESTEROL 109.8 MG/DL (<100); MAGNESIUM LEVEL 2.1 MG/DL (1.8-2.4); NON-HDL-C 135 MG/DL; POTASSIUM SERUM 3.9 MEQ/L (3.5-5.1); SODIUM LEVEL 136 MEQ/L (136-145); TOTAL PROTEIN 7.2 GM/DL (6.4-8.2); TRIGLYCERIDES LEVEL 126 MG/DL (<150)
[2018-01-15 15:29] LABS: ESTIMATED AVERAGE GLUCOSE 120 MG/DL (60-110); HEMOGLOBIN A1c 5.8 %
[2018-01-16 14:15] LABS: INSULIN LEVEL 43.9 uIU/mL (2.6-24.9)
== END ==
LOC: M SMT 08:04
DX: D50.9 Iron deficiency anemia, unspecified (principal); E78.5 Hyperlipidemia, unspecified; R73.01 Impaired fasting glucose; K51.20 Ulcerative (chronic) proctitis without complications
CPT/HCPCS: 82248

== ENCOUNTER → 2018-01-22 | Outpatient (CLI) | payer MEDICARE | LOC: M SLEEP HO 13:03 | DX: G47.33 Obstructive sleep apnea (adult) (pediatric) (principal) | CPT/HCPCS: G0399 ==

== ENCOUNTER → 2018-01-23 | Outpatient (CLI) | payer MEDICARE | LOC: M RAD 14:51 | DX: M51.06 Intervertebral disc disorders with myelopathy, lumbar region (principal); M48.061 Spinal stenosis, lumbar region without neurogenic claudication | CPT/HCPCS: 72148 ==

== ENCOUNTER → 2018-02-11 | Outpatient (CLI) | payer MEDICARE | LOC: M SMT 09:43 | DX: M79.644 Pain in right finger(s) (principal) | CPT/HCPCS: 73120 ==

== ENCOUNTER → 2018-04-22 | Outpatient (CLI) | payer MEDICARE ==
[2018-04-22 13:21] LABS: ALKALINE PHOSPHATASE 75 U/L (45-117); ALT/SGPT 24 U/L (12-78); AST/SGOT 11 U/L (7-37); BILIRUBIN,TOTAL 0.4 MG/DL (0.2-1.0); BLOOD UREA NITROGEN 17 MG/DL (7-18); CALCIUM LEVEL 9.1 MG/DL (8.5-10.1); CHLORIDE LEVEL 99 MEQ/L (98-107); CHOLESTEROL LEVEL 198 MG/DL (<200); GLUCOSE, FASTING 98 MG/DL (70-100); POTASSIUM SERUM 3.7 MEQ/L (3.5-5.1); SODIUM LEVEL 136 MEQ/L (136-145); TOTAL PROTEIN 7.3 GM/DL (6.4-8.2); TRIGLYCERIDES LEVEL 117 MG/DL (<150)
[2018-04-22 13:28] LABS: BASO # 0.1 10^3/uL (0.0-0.2); EOS # 0.3 10^3/uL (0.0-0.50); EOS % 3.6 % (0.0-3.0); HEMATOCRIT 41.1 % (36.0-47.0); HEMOGLOBIN 14.3 g/dl (12.0-15.5); IMMATURE GRANULOCYTE % 0.1 % (0-3.0); LYMPH # 3.1 10^3/uL (1.5-4.5); LYMPH % 44.3 % (24.0-44.0); MEAN CORPUSCULAR HEMOGLOBIN 29.8 pg (27.0-33.0); MEAN CORPUSCULAR HGB CONC 34.8 g/dl (32.0-36.5); MEAN CORPUSCULAR VOLUME 85.6 fl (80.0-96.0); MONO # 0.5 10^3/uL (0.0-0.8); MONO % 7.7 % (0.0-5.0); NEUTROPHILS # 3.1 10^3/uL (1.8-7.7); NEUTROPHILS % 43.3 % (36.0-66.0); PLATELET COUNT, AUTOMATED 316 10^3/uL (150-450); RED CELL DISTRIBUTION WIDTH 12.9 % (11.5-14.5); RETIC HEMOGLOBIN EQUIVALENT 34.2 pg (24-36); RETICULOCYTE # 99.8 10^9/L (17-77); RETICULOCYTE % 2.1 % (0.5-1.5)
[2018-04-22 13:30] LABS: ESTIMATED AVERAGE GLUCOSE 117 MG/DL (60-110); HEMOGLOBIN A1c 5.7 %
[2018-04-22 13:44] LABS: C REACTIVE PROTEIN QUANTITATIV 0.46 MG/DL (0.00-0.30)
[2018-04-22 13:58] LABS: CREATININE, URINE 56.9 MG/DL; MALB URINE SIEMENS < 5.0 MG/L; MAU/CREAT RATIO 8.7 MCG/MG (0.0-30.0)
[2018-04-22 14:43] LABS: ANION GAP 9 MEQ/L (8-16); CARBON DIOXIDE LEVEL 28 MEQ/L (21-32)
[2018-04-22 14:44] LABS: ALBUMIN 3.7 GM/DL (3.2-5.2); ALBUMIN/GLOBULIN RATIO 1.03 (1.00-1.93); CHOLESTEROL RISK RATIO 4.125 (<5); HDL CHOLESTEROL 48 MG/DL (>40); LDL CHOLESTEROL 126.6 MG/DL (<100); NON-HDL-C 150 MG/DL
[2018-04-22 14:56] LABS: APPEARANCE, URINE CLEAR (CLEAR); BACTERIA, URINE AUTO NEGATIVE (NEGATIVE); BILIRUBIN, URINE AUTO NEGATIVE (NEGATIVE); BLOOD, URINE BLOOD NEGATIVE (NEGATIVE); COLOR, URINE YELLOW (YELLOW); GLUCOSE, URINE (UA) AUTO NEGATIVE (NEGATIVE); KETONE, URINE AUTO NEGATIVE (NEGATIVE); LEUKOCYTE ESTERASE, URINE AUTO NEGATIVE (NEGATIVE); NITRITE, URINE AUTO NEGATIVE (NEGATIVE); PROTEIN, URINE AUTO NEGATIVE (NEGATIVE); RBC, URINE AUTO 0 /HPF (0-3); SPECIFIC GRAVITY URINE AUTO 1.009 (1.002-1.035); SQUAMOUS EPITHELIAL CELL UR AU 0 /HPF (0-6); UROBILINOGEN, URINE AUTO 0.2 mg/dL (0.0-2.0); WBC, URINE AUTO 0 /HPF (0-3)
[2018-04-22 16:35] LABS: VITAMIN B12 LEVEL 605 PG/ML (247-911)
[2018-04-23 14:15] LABS: INSULIN LEVEL 34.2 uIU/mL (2.6-24.9)
== END ==
LOC: M SMT 08:03
DX: I10 Essential (primary) hypertension (principal); E78.5 Hyperlipidemia, unspecified; R73.01 Impaired fasting glucose; E53.8 Deficiency of other specified B group vitamins
CPT/HCPCS: 83525

== ENCOUNTER → 2018-05-15 | Outpatient (CLI) | payer MEDICARE | LOC: M WHC 13:01 | DX: Z12.31 Encounter for screening mammogram for malignant neoplasm of breast (principal); Z01.419 Encounter for gynecological examination (general) (routine) without abnormal findings (principal); Z78.0 Asymptomatic menopausal state; Z92.29 Personal history of other drug therapy | CPT/HCPCS: 77067; G0123 ==

== ENCOUNTER → 2018-05-15 | Outpatient (REF) | payer MEDICARE ==
[2018-05-17 14:10] LABS: HPV HYBRID CAPTURE II Negative (Negative)
== END ==
LOC: M SFHCWAGY 13:37
DX: Z12.4 Encounter for screening for malignant neoplasm of cervix (principal); N95.2 Postmenopausal atrophic vaginitis
CPT/HCPCS: G0123

== ENCOUNTER → 2018-07-07 | Outpatient (CLI) | payer MEDICARE | LOC: M SLEEP 19:33 | DX: G47.33 Obstructive sleep apnea (adult) (pediatric) (principal) | CPT/HCPCS: 95811 ==

== ENCOUNTER → 2018-11-11 | Outpatient (REF) | payer MEDICARE ==
[~2018-11-11] MED LIST changes: +AMLO5TAB6; +APRI0.37; +CEFD1CAP8; +CHLO125TA; +DULO1CAP3; +ENAL20TA; +FLUO20CA19; +HUMI40KI2; -ISOVUE-370 76% 100ML VIAL (Q9967) As Ordered; +LOSA100T50; +MESA50SU; +METH4PACK; +METH75TA; +NASA1SPR; +NORCOTAB PO; +OMEP40CA2; +SUCR1TAB56; +TIZA4CAP
[2018-11-11 15:48] LABS: BASO # 0.1 10^3/uL (0.0-0.2); BASO % 0.6 % (0.0-1.0); EOS # 0.1 10^3/uL (0.0-0.50); EOS % 1.3 % (0.0-3.0); HEMATOCRIT 42.7 % (36.0-47.0); HEMOGLOBIN 14.6 g/dl (12.0-15.5); LYMPH # 3.2 10^3/uL (1.5-4.5); LYMPH % 37.9 % (24.0-44.0); MEAN CORPUSCULAR HEMOGLOBIN 29.2 pg (27.0-33.0); MEAN CORPUSCULAR HGB CONC 34.2 g/dl (32.0-36.5); MEAN CORPUSCULAR VOLUME 85.4 fl (80.0-96.0); MONO # 0.8 10^3/uL (0.0-0.8); MONO % 9.6 % (0.0-5.0); NEUTROPHILS # 4.2 10^3/uL (1.8-7.7); NEUTROPHILS % 50.4 % (36.0-66.0); PLATELET COUNT, AUTOMATED 338 10^3/uL (150-450); WHITE BLOOD COUNT 8.4 10^3/uL (4.0-10.0)
[2018-11-11 16:16] LABS: ALBUMIN 3.8 GM/DL (3.2-5.2); ALT/SGPT 27 U/L (12-78); BILIRUBIN,TOTAL 0.4 MG/DL (0.2-1.0); BLOOD UREA NITROGEN 15 MG/DL (7-18); C REACTIVE PROTEIN QUANTITATIV < 0.30 MG/DL (0.00-0.30); CALCIUM LEVEL 8.7 MG/DL (8.5-10.1); CARBON DIOXIDE LEVEL 28 MEQ/L (21-32); CHLORIDE LEVEL 98 MEQ/L (98-107); CREATININE FOR GFR 0.68 MG/DL (0.55-1.30); GLOMERULAR FILTRATION RATE > 60.0 (>51); GLUCOSE, FASTING 94 MG/DL (70-100); POTASSIUM SERUM 3.6 MEQ/L (3.5-5.1); SODIUM LEVEL 136 MEQ/L (136-145); TOTAL PROTEIN 7.4 GM/DL (6.4-8.2)
== END ==
LOC: M SFHCPLAZ 13:52
PROVIDERS: ATTEND Family Medicine
DX: S29.011A Strain of muscle and tendon of front wall of thorax, initial encounter (principal); X58.XXXA Exposure to other specified factors, initial encounter; Y92.89 Other specified places as the place of occurrence of the external cause
CPT/HCPCS: 36415; 80053; 85025; 86140; G0463

== ENCOUNTER → 2019-02-19 | Outpatient (CLI) | payer MEDICARE ==
[~2019-02-19] MED LIST changes: +HYDR-3715 PO; -NORCOTAB PO
[2019-02-19 10:35] LABS: APPEARANCE, URINE CLEAR (CLEAR); BACTERIA, URINE AUTO NEGATIVE (NEGATIVE); BILIRUBIN, URINE AUTO NEGATIVE (NEGATIVE); BLOOD, URINE BLOOD NEGATIVE (NEGATIVE); COLOR, URINE YELLOW (YELLOW); GLUCOSE, URINE (UA) AUTO NEGATIVE (NEGATIVE); KETONE, URINE AUTO NEGATIVE (NEGATIVE); LEUKOCYTE ESTERASE, URINE AUTO NEGATIVE (NEGATIVE); NITRITE, URINE AUTO NEGATIVE (NEGATIVE); PROTEIN, URINE AUTO NEGATIVE (NEGATIVE); RBC, URINE AUTO 0 /HPF (0-3); SPECIFIC GRAVITY URINE AUTO 1.011 (1.002-1.035); SQUAMOUS EPITHELIAL CELL UR AU 0 /HPF (0-6); WBC, URINE AUTO 0 /HPF (0-3)
[2019-02-19 10:38] LABS: BASO # 0.1 10^3/uL (0.0-0.2); BASO % 0.9 % (0.0-1.0); EOS # 0.2 10^3/uL (0.0-0.50); EOS % 2.8 % (0.0-3.0); HEMATOCRIT 41.4 % (36.0-47.0); HEMOGLOBIN 14.1 g/dl (12.0-15.5); LYMPH % 46.7 % (24.0-44.0); MEAN CORPUSCULAR HEMOGLOBIN 29.7 pg (27.0-33.0); MEAN CORPUSCULAR HGB CONC 34.1 g/dl (32.0-36.5); MEAN CORPUSCULAR VOLUME 87.2 fl (80.0-96.0); MONO # 0.7 10^3/uL (0.0-0.8); MONO % 10.5 % (0.0-5.0); NEUTROPHILS # 2.5 10^3/uL (1.8-7.7); NEUTROPHILS % 38.9 % (36.0-66.0); PLATELET COUNT, AUTOMATED 305 10^3/uL (150-450); RED BLOOD COUNT 4.75 10^6/uL (4.00-5.40); WHITE BLOOD COUNT 6.5 10^3/uL (4.0-10.0)
[2019-02-19 11:02] LABS: ALBUMIN 3.5 GM/DL (3.2-5.2); ALT/SGPT 28 U/L (12-78); BILIRUBIN,TOTAL 0.4 MG/DL (0.2-1.0); BLOOD UREA NITROGEN 14 MG/DL (7-18); CALCIUM LEVEL 8.7 MG/DL (8.5-10.1); CARBON DIOXIDE LEVEL 29 MEQ/L (21-32); CHLORIDE LEVEL 97 MEQ/L (98-107); CHOLESTEROL LEVEL 180 MG/DL (<200); CHOLESTEROL RISK RATIO 3.673 (<5); CREATININE FOR GFR 0.74 MG/DL (0.55-1.30); GLOMERULAR FILTRATION RATE > 60.0 (>51); GLUCOSE, FASTING 109 MG/DL (70-100); HDL CHOLESTEROL 49 MG/DL (>40); LDL CHOLESTEROL 113 MG/DL (<100); NON-HDL-C 131 MG/DL; POTASSIUM SERUM 3.3 MEQ/L (3.5-5.1); SODIUM LEVEL 135 MEQ/L (136-145); TOTAL PROTEIN 6.8 GM/DL (6.4-8.2); TRIGLYCERIDES LEVEL 92 MG/DL (<150)
[2019-02-19 11:03] LABS: HEMOGLOBIN A1c 5.9 %
[2019-02-19 11:10] LABS: CREATININE, URINE 73.6 MG/DL; MALB URINE SIEMENS 7.2 MG/L; MAU/CREAT RATIO 9.7 MCG/MG (0.0-30.0); VITAMIN B12 LEVEL 366 PG/ML (247-911)
== END ==
LOC: M SMT 08:18
PROVIDERS: ATTEND Family Medicine
DX: I10 Essential (primary) hypertension (principal); R73.01 Impaired fasting glucose; E78.5 Hyperlipidemia, unspecified; E53.8 Deficiency of other specified B group vitamins

== ENCOUNTER 2019-05-12 09:15 | Day surgery (SDC) | payer MEDICARE ==
[~2019-05-12] VITALS: Ht 162.6 cm; Wt 95.7 kg
[~2019-05-12 09:15] MED LIST changes: +AMLO5TAB6 PO; +ASPI81TA85 PO; +CELE100C PO; +CHLO25TA PO; +CYAN500T8 PO; -DULO1CAP3; +DULO1CAP6; +DULO1CAP6 PO; +ENAL20TA PO; +HUMI40KI SC; +METH750T2; -METH75TA; +MM S100C PO; +NS 1,000 ML IV ONE; +OMEP40CA2 PO
[2019-05-12] MEDS ORDERED: LIDOCAINE 2% INJ 100 MG/5 ML SDV (FOR ANES.) As Ordered ONE (10:35)
[2019-05-12] MEDS ORDERED: PROPOFOL 200 MG/20 ML VIAL As Ordered ONE ×2 (10:35→11:42)
--- NOTE | 2019-05-12 11:34 | ROOR ---
Patient Name: Megan Zamora Procedure Date: 05/12/2019 11:09 AM Date of : 1960 Age: 58 Room: [facility] Gender: Female Note Status: Finalized Procedure: Total Colonoscopy to cecum + Bx. Indications: High risk colon cancer surveillance: Ulcerative proctitis Providers: Yunier Easley MD Referring MD: Mando Sue MD Requesting Provider: Medicines: Monitored Anesthesia Care Complications: No immediate complications. Procedure: Pre-Anesthesia Assessment: - The heart rate, respiratory rate, oxygen saturations, blood pressure, adequacy of pulmonary ventilation, and response to care were monitored throughout the procedure. The Colonoscope was introduced through the anus and advanced to the cecum, identified by appendiceal orifice and ileocecal valve. The colonoscopy was performed without difficulty. The patient tolerated the procedure well. The quality of the bowel preparation was excellent. Findings: The perianal and digital rectal examinations were normal. Non-bleeding internal hemorrhoids were found during retroflexion. The hemorrhoids were small and Grade I (internal hemorrhoids that do not prolapse). Discontinuous areas of nonbleeding ulcerated mucosa with no stigmata of recent bleeding were present in the rectum. Biopsies were taken with a cold forceps for histology. No other significant abnormalities were identified in a careful examination of the remainder of the colon. Biopsies were taken with a cold forceps in the ascending colon for histology. The exam was otherwise without abnormality on direct and retroflexion views. Impression: - Non-bleeding internal hemorrhoids. - Mucosal ulceration. Biopsied. - The examination was otherwise normal on direct and retroflexion views. - Biopsies were taken with a cold forceps for histology in the ascending colon. - The exam was otherwise normal to the cecum. Recommendation: - Patient has a contact number available for emergencies. The signs and symptoms of potential delayed complications were discussed with the patient. Return to normal activities tomorrow. Written discharge instructions were provided to the patient. - High fiber diet. - Discharge patient to home. - Continue present medications. - Await pathology results. - Telephone GI clinic for pathology results in 1 week. - Repeat colonoscopy in 5 years for surveillance based on pathology results. - Return to referring physician. - The findings and recommendations were discussed with the patient's family. Yunier Easley MD Yunier Easley MD 05/12/2019 11:33:58 AM Electronically signed by Yunier Easley MD Number of Addenda: 0 Note Initiated On: 05/12/2019 11:09 AM Estimated Blood Loss: Estimated blood loss: none.
[2019-05-12 11:53] VITALS: BP 148/85
== END 2019-05-12 11:55 | disposition home or self-care (01) ==
LOC: M OPP 09:15
PROVIDERS: ATTEND Internal Medicine Gastroenterology
DX: K51.20 Ulcerative (chronic) proctitis without complications (principal); K64.0 First degree hemorrhoids; G47.30 Sleep apnea, unspecified; E11.9 Type 2 diabetes mellitus without complications; Z79.82 Long term (current) use of aspirin; Z79.899 Other long term (current) drug therapy; Z88.0 Allergy status to penicillin; Z88.8 Allergy status to other drugs, medicaments and biological substances

== ENCOUNTER → 2019-09-16 | Outpatient (CLI) | payer MEDICARE ==
[~2019-09-16] MED LIST changes: -NS 1,000 ML IV ONE; -OMEP40CA2; -OMEP40CA2 PO; +OMEP40CA97; +OMEP40CA97 PO
[2019-09-16 10:57] LABS: HEMOGLOBIN A1c 6.2 %
[2019-09-16 11:16] LABS: ALBUMIN 3.6 GM/DL (3.2-5.2); ALT/SGPT 24 U/L (12-78); BILIRUBIN,TOTAL 0.4 MG/DL (0.2-1.0); BLOOD UREA NITROGEN 18 MG/DL (7-18); CALCIUM LEVEL 9.4 MG/DL (8.5-10.1); CARBON DIOXIDE LEVEL 27 MEQ/L (21-32); CHLORIDE LEVEL 101 MEQ/L (98-107); CHOLESTEROL LEVEL 221 MG/DL (<200); CHOLESTEROL RISK RATIO 5.261 (<5); CREATININE FOR GFR 0.72 MG/DL (0.55-1.30); GLOMERULAR FILTRATION RATE > 60.0 (>51); GLUCOSE, FASTING 102 MG/DL (70-100); HDL CHOLESTEROL 42 MG/DL (>40); LDL CHOLESTEROL 143 MG/DL (<100); MAGNESIUM LEVEL 1.9 MG/DL (1.8-2.4); NON-HDL-C 179 MG/DL; POTASSIUM SERUM 3.9 MEQ/L (3.5-5.1); SODIUM LEVEL 138 MEQ/L (136-145); TOTAL PROTEIN 7.3 GM/DL (6.4-8.2); TRIGLYCERIDES LEVEL 178 MG/DL (<150); VITAMIN B12 LEVEL 404 PG/ML (247-911)
== END ==
LOC: M PLALAB 08:30
PROVIDERS: ATTEND Family Medicine
DX: R73.01 Impaired fasting glucose (principal); E78.5 Hyperlipidemia, unspecified; I10 Essential (primary) hypertension; E53.8 Deficiency of other specified B group vitamins

== ENCOUNTER → 2019-09-24 | Outpatient (CLI) | payer MEDICARE ==
--- NOTE | 2019-09-24 16:34 | REPMRS ---
Patient History The patient states she has not had a clinical breast exam in over a year. Family history of breast cancer at age 80 in maternal aunt. Took hormonal contraceptives for 10 years. Digital Woman Screen Mammo: September 24, 2019 - Exam #: [id number] Bilateral CC and MLO view(s) were taken. Technologist: Elizabeth Shultz, Technologist Prior study comparison: May 15, 2018, bilateral digital woman screen mammo performed at [facility]. February 18, 2017, digital woman screen mammo performed at [facility]. July 25, 2015, digital woman screen mammo performed at [facility]. FINDINGS: There are scattered fibroglandular densities. There is a spiculated appearing subcentimeter density in the right breast superiorly at approximately the 1 o'clock position which does not appear to have been present previously. This merits additional evaluation. There has been no other change in the appearance of the mammogram from the prior studies. There is a mild amount of scattered fibroglandular density which is fairly symmetric. There is no other interval development of dominant mass, architectural distortion, or grouped microcalcification suggestive of malignancy. 3-D tomosynthesis shows no additional findings. Assessment: BI-RADS/ACR category 0 mammogram, Incomplete: Need additional imaging evaluation and/or prior mammograms for comparison. Recommendation Ultrasound and special view mammogram of the right breast. This patient's Lifetime Breast Cancer Risk is estimated at 9.8 %. This mammogram was interpreted with the aid of an FDA-approved computer-aided dectection system. Electronically Signed By: Blanco Rivas MD 09/24/19 [id number]
== END ==
LOC: M WHC 15:07
PROVIDERS: ATTEND Family Medicine
DX: Z12.31 Encounter for screening mammogram for malignant neoplasm of breast (principal); Z92.0 Personal history of contraception; N63.11 Unspecified lump in the right breast, upper outer quadrant

== ENCOUNTER → 2019-10-02 | Outpatient (CLI) | payer MEDICARE ==
[2019-10-02 14:34] LABS: BASO # 0.1 10^3/uL (0.0-0.2); BASO % 0.7 % (0.0-1.0); EOS # 0.2 10^3/uL (0.0-0.5); EOS % 2.2 % (0.0-3.0); HEMATOCRIT 43.1 % (36.0-47.0); HEMOGLOBIN 14.7 g/dl (12.0-15.5); LYMPH # 3.9 10^3/uL (1.5-5.0); LYMPH % 45.2 % (24.0-44.0); MEAN CORPUSCULAR HEMOGLOBIN 28.5 pg (27.0-33.0); MEAN CORPUSCULAR HGB CONC 34.1 g/dl (32.0-36.5); MEAN CORPUSCULAR VOLUME 83.5 fl (80.0-96.0); MONO # 0.8 10^3/uL (0.0-0.8); MONO % 9.5 % (0.0-5.0); NEUTROPHILS # 3.6 10^3/uL (1.5-8.5); NEUTROPHILS % 42.2 % (36.0-66.0); PLATELET COUNT, AUTOMATED 342 10^3/uL (150-450); RED BLOOD COUNT 5.16 10^6/uL (4.00-5.40); WHITE BLOOD COUNT 8.6 10^3/uL (4.0-10.0)
[2019-10-02 14:45] LABS: INR 1.09; PROTHROMBIN TIME 13.8 SECONDS (11.8-14.0)
[2019-10-02 14:46] LABS: PARTIAL THROMBOPLASTIN TIME 34.3 SECONDS (25.0-38.4)
[2019-10-02 15:04] LABS: ALBUMIN 3.9 GM/DL (3.2-5.2); BLOOD UREA NITROGEN 17 MG/DL (7-18); CALCIUM LEVEL 9.5 MG/DL (8.5-10.1); CARBON DIOXIDE LEVEL 27 MEQ/L (21-32); CHLORIDE LEVEL 95 MEQ/L (98-107); CREATININE FOR GFR 0.69 MG/DL (0.55-1.30); FREE T4 1.16 NG/DL (0.76-1.46); GLOMERULAR FILTRATION RATE > 60.0 (>51); GLUCOSE, FASTING 89 MG/DL (70-100); PHOSPHORUS LEVEL 3.2 MG/DL (2.5-4.9); POTASSIUM SERUM 3.6 MEQ/L (3.5-5.1); SODIUM LEVEL 130 MEQ/L (136-145)
== END ==
LOC: M PLALAB 12:41
PROVIDERS: ATTEND Family Medicine
DX: Z01.818 Encounter for other preprocedural examination (principal); M19.049 Primary osteoarthritis, unspecified hand; D50.9 Iron deficiency anemia, unspecified; Z79.899 Other long term (current) drug therapy
CPT/HCPCS: 36415; 80069; 84439; 84443; 85025; 85610; 85730; 93005; G0463

== ENCOUNTER → 2019-10-05 | Outpatient (CLI) | payer MEDICARE ==
[2019-10-05 10:41] LABS: ALBUMIN 3.8 GM/DL (3.2-5.2); BLOOD UREA NITROGEN 17 MG/DL (7-18); CARBON DIOXIDE LEVEL 28 MEQ/L (21-32); CHLORIDE LEVEL 91 MEQ/L (98-107); CREATININE FOR GFR 0.82 MG/DL (0.55-1.30); GLOMERULAR FILTRATION RATE > 60.0 (>51); GLUCOSE, FASTING 127 MG/DL (70-100); PHOSPHORUS LEVEL 3.1 MG/DL (2.5-4.9); POTASSIUM SERUM 3.5 MEQ/L (3.5-5.1); SODIUM LEVEL 129 MEQ/L (136-145)
[2019-10-05 12:50] LABS: OSMOLALITY SERUM 269 MOSM/KG (275-295)
== END ==
LOC: M PLALAB 08:39
PROVIDERS: ATTEND Family Medicine
DX: E87.1 Hypo-osmolality and hyponatremia (principal)

== ENCOUNTER → 2019-10-06 | Outpatient (CLI) | payer MEDICARE ==
--- NOTE | 2019-10-07 07:33 | REP ---
DIAGNOSTIC MAMMOGRAM RIGHT BREAST WITH RIGHT BREAST ULTRASOUND: Multiple spot compression views of the right breast are performed correlated with the recent mammogram of 09/24/2019. Spot compression views confirm the presence of a 7-8 mm irregular nodule at the 12 o'clock position of the right breast. Real-time sonographic evaluation of the 12 o'clock region right breast demonstrates a lobulated cystic appearing area which demonstrates low level echoes. There is no enhanced acoustic through transmission. It measures 8 x 4 x 5 mm. IMPRESSION: Lobulated cystic appearing area at 12 o'clock at the site of the nodule on the mammogram. There are internal low level echoes. This does not appear to represent a simple cyst. Recommend ultrasound guided sampling. ACR 4 suspicious. BIRADS 4: BI-RADS/ACR category 4 mammogram. Suspicious Abnormality - biopsy should be considered. The patient letter being requested is M4. Electronically Signed by Marek Knowles MD 10/07/2019 10:35 P
== END ==
LOC: M RAD 13:38
PROVIDERS: ATTEND Family Medicine
DX: Z12.31 Encounter for screening mammogram for malignant neoplasm of breast (principal); N63.15 Unspecified lump in the right breast, overlapping quadrants

== ENCOUNTER → 2019-10-07 | Outpatient (CLI) | payer MEDICARE ==
[2019-10-07 17:37] LABS: OSMOLALITY URINE 438 MOSM/KG (500-800)
[2019-10-07 17:59] LABS: ALBUMIN 3.7 GM/DL (3.2-5.2); BLOOD UREA NITROGEN 15 MG/DL (7-18); CALCIUM LEVEL 9.1 MG/DL (8.5-10.1); CARBON DIOXIDE LEVEL 28 MEQ/L (21-32); CHLORIDE LEVEL 90 MEQ/L (98-107); CREATININE FOR GFR 0.77 MG/DL (0.55-1.30); GLOMERULAR FILTRATION RATE > 60.0 (>51); GLUCOSE, FASTING 95 MG/DL (70-100); PHOSPHORUS LEVEL 2.9 MG/DL (2.5-4.9); POTASSIUM SERUM 3.3 MEQ/L (3.5-5.1); SODIUM LEVEL 128 MEQ/L (136-145)
[2019-10-07 18:02] LABS: OSMOLALITY SERUM 268 MOSM/KG (275-295)
[2019-10-07 20:12] LABS: SODIUM,RANDOM URINE 66 MEQ/L
== END ==
LOC: M PLALAB 15:45
PROVIDERS: ATTEND Family Medicine
DX: E87.1 Hypo-osmolality and hyponatremia (principal)

== ENCOUNTER → 2019-10-26 | Outpatient (CLI) | payer MEDICARE ==
[~2019-10-26] MED LIST changes: -FLUO20CA19; +FLUO20CA22; +LIDOCAINE 1% MDV 20ML VIAL As Ordered ONE; +SODIUM BICARBONATE 8.4% INJ 50MEQ 50 ML VIAL As Ordered ONE; +TIZA2TA PO
[2019-10-26 11:32] VITALS: BP 164/91
--- NOTE | 2019-10-26 12:05 | REP ---
Digital diagnostic unilateral right breast mammography with CAD: Two views. History: Marker clip placement views. The patient is status post ultrasound-guided needle biopsy and marker clip placement. Comparison mammography September 24, 2019. Findings: Craniocaudal and mediolateral views of the right breast demonstrate that the target nodule is no longer apparent. Marker clip appears approximately 2 cm lateral to the location of the target on the CC view. Marker clip appears to be in good position on the MLO view. Impression: Marker clip approximate 2 cm lateral. The target nodule is no longer visible. This mammogram was interpreted with the aid of an FDA-approved computer-aided detection system. Electronically Signed by Richard Rivas MD 10/26/2019 02:23 P
--- NOTE | 2019-10-26 16:34 | REP ---
Ultrasound-guided right breast biopsy. The procedure was performed by PEGGY Ray, under the direct supervision of Dr. Rivas. The risks and benefits of the procedure were explained to the patient and informed consent was obtained both verbally and written. Directly prior to the start of the procedure, a formal timeout was completed in the procedure room. The right breast mass was localized using ultrasound guidance. The skin was prepped and draped in a sterile fashion. 11 ml of buffered lidocaine l was used as a local anesthetic. Using ultrasound guidance a 13-gauge coaxial needle was inserted and 2 core biopsy samples were obtained. After the first biopsy the target completely disappeared. A marker clip was placed at the biopsy site. The patient tolerated the procedure well and there were no immediate complications. After the appropriate monitored convalescence the patient was discharged from the department. Reviewed by EPGGY Crocker 10/26/2019 03:43 P Electronically Signed by Richard Rivas MD 10/26/2019 04:24 P
== END ==
LOC: M IRPRO 09:57
PROVIDERS: ATTEND Physician Assistant Medical
DX: N64.1 Fat necrosis of breast (principal); N60.11 Diffuse cystic mastopathy of right breast

== ENCOUNTER → 2019-12-11 | Outpatient (REF) | payer MEDICARE ==
[~2019-12-11] MED LIST changes: -LIDOCAINE 1% MDV 20ML VIAL As Ordered ONE; -SODIUM BICARBONATE 8.4% INJ 50MEQ 50 ML VIAL As Ordered ONE
[2019-12-11 13:27] LABS: BASO # 0.1 10^3/uL (0.0-0.2); BASO % 0.9 % (0.0-1.0); EOS # 0.2 10^3/uL (0.0-0.5); EOS % 2.4 % (0.0-3.0); HEMOGLOBIN 14.5 g/dl (12.0-15.5); LYMPH % 51.7 % (24.0-44.0); MEAN CORPUSCULAR HEMOGLOBIN 28.9 pg (27.0-33.0); MEAN CORPUSCULAR HGB CONC 33.7 g/dl (32.0-36.5); MEAN CORPUSCULAR VOLUME 85.7 fl (80.0-96.0); MONO # 0.6 10^3/uL (0.0-0.8); MONO % 7.5 % (0.0-5.0); NEUTROPHILS # 2.9 10^3/uL (1.5-8.5); NEUTROPHILS % 37.4 % (36.0-66.0); PLATELET COUNT, AUTOMATED 331 10^3/uL (150-450); RED BLOOD COUNT 5.02 10^6/uL (4.00-5.40); WHITE BLOOD COUNT 7.8 10^3/uL (4.0-10.0)
[2019-12-11 13:48] LABS: ERYTHROCYTE SEDIMENTATION RATE 20 mm/hr (0-30)
[2019-12-11 13:55] LABS: OSMOLALITY SERUM 284 MOSM/KG (275-295)
[2019-12-11 13:58] LABS: ALBUMIN 3.7 GM/DL (3.2-5.2); ALT/SGPT 31 U/L (12-78); BILIRUBIN,TOTAL 0.5 MG/DL (0.2-1.0); BLOOD UREA NITROGEN 18 MG/DL (7-18); CARBON DIOXIDE LEVEL 26 MEQ/L (21-32); CHLORIDE LEVEL 99 MEQ/L (98-107); CREATININE FOR GFR 0.78 MG/DL (0.55-1.30); GLOMERULAR FILTRATION RATE > 60.0 (>51); GLUCOSE, FASTING 128 MG/DL (70-100); NT-PRO BNP 8 PG/ML (<125); POTASSIUM SERUM 3.5 MEQ/L (3.5-5.1); SODIUM LEVEL 133 MEQ/L (136-145); TOTAL PROTEIN 7.8 GM/DL (6.4-8.2)
[2019-12-11 17:42] LABS: SODIUM,RANDOM URINE 100 MEQ/L
[2019-12-11 17:56] LABS: APPEARANCE, URINE CLEAR (CLEAR); BACTERIA, URINE AUTO NEGATIVE (NEGATIVE); BILIRUBIN, URINE AUTO NEGATIVE (NEGATIVE); BLOOD, URINE BLOOD NEGATIVE (NEGATIVE); COLOR, URINE YELLOW (YELLOW); GLUCOSE, URINE (UA) AUTO NEGATIVE (NEGATIVE); KETONE, URINE AUTO NEGATIVE (NEGATIVE); LEUKOCYTE ESTERASE, URINE AUTO NEGATIVE (NEGATIVE); NITRITE, URINE AUTO NEGATIVE (NEGATIVE); PROTEIN, URINE AUTO NEGATIVE (NEGATIVE); RBC, URINE AUTO 1 /HPF (0-3); SPECIFIC GRAVITY URINE AUTO 1.015 (1.002-1.035); SQUAMOUS EPITHELIAL CELL UR AU 0 /HPF (0-6); WBC, URINE AUTO 0 /HPF (0-3)
[2019-12-11 18:51] LABS: OSMOLALITY URINE 635 MOSM/KG (500-800)
== END ==
LOC: M SFHCPLAZ 11:32
PROVIDERS: ATTEND Family Medicine
DX: E87.1 Hypo-osmolality and hyponatremia (principal); I10 Essential (primary) hypertension; Z79.82 Long term (current) use of aspirin; Z79.899 Other long term (current) drug therapy

== ENCOUNTER → 2020-04-29 | Outpatient (CLI) | payer MEDICARE ==
[~2020-04-29] MED LIST changes: +AMLO1TAB24; +AMLO1TAB24 PO; -AMLO5TAB6; -AMLO5TAB6 PO; -ASPI81TA85 PO; +ASPI81TA86 PO; -ENAL20TA; -ENAL20TA PO; +ENAL20TA11; +ENAL20TA11 PO
[2020-04-29 12:05] LABS: HEMATOCRIT 41.4 % (36.0-47.0); HEMOGLOBIN 13.7 g/dl (12.0-15.5); MEAN CORPUSCULAR HEMOGLOBIN 28.3 pg (27.0-33.0); MEAN CORPUSCULAR HGB CONC 33.1 g/dl (32.0-36.5); MEAN CORPUSCULAR VOLUME 85.5 fl (80.0-96.0); PLATELET COUNT, AUTOMATED 386 10^3/uL (150-450); RED BLOOD COUNT 4.84 10^6/uL (4.00-5.40); WHITE BLOOD COUNT 10.2 10^3/uL (4.0-10.0)
[2020-04-29 12:45] LABS: ERYTHROCYTE SEDIMENTATION RATE 32 mm/hr (0-30)
[2020-04-29 14:13] LABS: ALBUMIN 3.4 GM/DL (3.2-5.2); ALT/SGPT 22 U/L (12-78); BILIRUBIN,TOTAL 0.5 MG/DL (0.2-1.0); BLOOD UREA NITROGEN 21 MG/DL (7-18); C REACTIVE PROTEIN QUANTITATIV 1.38 MG/DL (0.00-0.30); CALCIUM LEVEL 9.2 MG/DL (8.5-10.1); CARBON DIOXIDE LEVEL 26 MEQ/L (21-32); CHLORIDE LEVEL 99 MEQ/L (98-107); CREATININE FOR GFR 0.77 MG/DL (0.55-1.30); FERRITIN 49 NG/ML (8-252); FREE T4 1.22 NG/DL (0.76-1.46); GLOMERULAR FILTRATION RATE > 60.0 (>51); GLUCOSE, FASTING 117 MG/DL (70-100); IRON (FE) 83 UG/DL (50-170); MAGNESIUM LEVEL 1.8 MG/DL (1.8-2.4); PERCENT SATURATION 23.4 % (13.2-45.0); SODIUM LEVEL 130 MEQ/L (136-145); TOTAL IRON BINDING CAPACITY 355 UG/DL (250-450); TOTAL PROTEIN 7.3 GM/DL (6.4-8.2)
== END ==
LOC: M PLALAB 08:12
PROVIDERS: ATTEND Family Medicine
DX: I10 Essential (primary) hypertension (principal); K50.90 Crohn's disease, unspecified, without complications

== ENCOUNTER → 2020-06-29 | Outpatient (CLI) | payer MEDICARE | LOC: M LABSMTC 11:26 | PROVIDERS: ATTEND Family Medicine | DX: Z20.828 Contact with and (suspected) exposure to other viral communicable diseases (principal) | CPT/HCPCS: C9803; U0003 ==

== ENCOUNTER → 2020-10-07 | Outpatient (REF) | payer MEDICARE ==
[~2020-10-07] MED LIST changes: +CYAN500T14 PO; -CYAN500T8 PO
[2020-10-07 13:50] LABS: BASO # 0.1 10^3/uL (0.0-0.2); BASO % 0.7 % (0.0-1.0); EOS # 0.1 10^3/uL (0.0-0.5); EOS % 1.9 % (0.0-3.0); HEMOGLOBIN 14.1 g/dl (12.0-15.5); LYMPH # 3.4 10^3/uL (1.5-5.0); LYMPH % 47.7 % (24.0-44.0); MEAN CORPUSCULAR HEMOGLOBIN 28.4 pg (27.0-33.0); MEAN CORPUSCULAR HGB CONC 32.8 g/dl (32.0-36.5); MEAN CORPUSCULAR VOLUME 86.7 fl (80.0-96.0); MONO # 0.7 10^3/uL (0.0-0.8); MONO % 9.3 % (0.0-5.0); NEUTROPHILS # 2.8 10^3/uL (1.5-8.5); NEUTROPHILS % 39.8 % (36.0-66.0); PLATELET COUNT, AUTOMATED 303 10^3/uL (150-450); RED BLOOD COUNT 4.96 10^6/uL (4.00-5.40)
[2020-10-07 14:11] LABS: HEMOGLOBIN A1c 5.5 %
[2020-10-07 14:22] LABS: ALBUMIN 3.7 GM/DL (3.2-5.2); ALT/SGPT 28 U/L (12-78); BILIRUBIN,TOTAL 0.2 MG/DL (0.2-1.0); BLOOD UREA NITROGEN 13 MG/DL (7-18); C REACTIVE PROTEIN QUANTITATIV 0.34 MG/DL (0.00-0.30); CALCIUM LEVEL 9.4 MG/DL (8.5-10.1); CARBON DIOXIDE LEVEL 26 MEQ/L (21-32); CHLORIDE LEVEL 101 MEQ/L (98-107); CHOLESTEROL LEVEL 217 MG/DL (<200); CHOLESTEROL RISK RATIO 4.094 (<5); CREATININE FOR GFR 0.62 MG/DL (0.55-1.30); FERRITIN 12 NG/ML (8-252); GLOMERULAR FILTRATION RATE > 60.0 (>51); GLUCOSE, FASTING 84 MG/DL (70-100); HDL CHOLESTEROL 53 MG/DL (>40); LDL CHOLESTEROL 143 MG/DL (<100); NON-HDL-C 164 MG/DL; SODIUM LEVEL 136 MEQ/L (136-145); TOTAL PROTEIN 7.2 GM/DL (6.4-8.2); TRIGLYCERIDES LEVEL 107 MG/DL (<150)
[2020-10-07 14:36] LABS: PTH INTACT 52.4 PG/ML (18.5-88.0); TOTAL 25(OH) VITAMIN D 35.9 NG/ML (30.0-100.0)
[2020-10-07 14:44] LABS: ERYTHROCYTE SEDIMENTATION RATE 12 mm/hr (0-30)
== END ==
LOC: M SFHCPLAZ 12:07
PROVIDERS: ATTEND Family Medicine
DX: I10 Essential (primary) hypertension (principal); D50.9 Iron deficiency anemia, unspecified; R73.01 Impaired fasting glucose

== ENCOUNTER → 2020-10-21 | Outpatient (CLI) | payer MEDICARE ==
[~2020-10-21] MED LIST changes: +METH-1165; -METH750T2
== END ==
LOC: M LABSMTC 10:52
PROVIDERS: ATTEND Pediatrics
DX: Z20.822 Contact with and (suspected) exposure to COVID-19 (principal)
CPT/HCPCS: C9803; U0003

== ENCOUNTER → 2020-11-30 | Outpatient (CLI) | payer MEDICARE ==
--- NOTE | 2020-11-30 11:28 | REPMRS ---
Patient History The patient states she has not had a clinical breast exam in over a year. Family history of breast cancer at age 80 in maternal aunt. Benign US guided breast biopsy of the right breast, October 26, 2019. Took hormonal contraceptives for 10 years. Digital Woman Screen Mammo: November 30, 2020 - Exam #: [id number] Bilateral CC and MLO view(s) were taken. Technologist: Dulce Brown RT Prior study comparison: October 26, 2019, right breast digital mammo diagnostic unilateral, performed at [facility]. October 06, 2019, right breast digital mammo diagnostic unilateral, performed at [facility]. September 24, 2019, bilateral digital woman screen mammo performed at [facility]. FINDINGS: There are scattered fibroglandular densities. The Volpara volumetric breast density category is:B. The nodular density noted previously in the right breast is no longer apparent. There is a needle biopsy marker clip in the right breast. There has been no change in the appearance of the mammogram from the prior studies. There is a mild amount of scattered fibroglandular density which is fairly symmetric. There is no interval development of dominant mass, architectural distortion, or grouped microcalcification suggestive of malignancy. 3-D tomosynthesis shows no additional findings. Assessment: BI-RADS/ACR category 2 mammogram. Benign Findings. Recommendation Routine screening mammogram of both breasts in 1 year (for women over age 40). This patient's [facility] Lifetime Breast Cancer Risk is estimated at 9.6 %. This mammogram was interpreted with the aid of an FDA-approved computer-aided dectection system. Electronically Signed By: Blanco Rivas MD 11/30/20 112
--- NOTE | 2020-11-30 11:39 | DEXAMM ---
INDICATION: M85.80 OSTEOPENIA. COMPARISON: Comparison study September 27, 2017 and March 19, 2012.. TECHNIQUE: Bone density was measured using dual-energy x-ray absorptionmetry (DEXA). FINDINGS: AP SPINE L1-L4 BMD 1.124 g/cm2 Young Adult T-Score -0.5 Age Matched Z-Score 0.7. LT FEMUR, TOTAL BMD 0.950 g/cm2 Young Adult T-Score -0.5 Age Matched Z-Score 0.4. LT NECK BMD 0.884 g/cm2 Young Adult T-Score -1.1 Age Matched Z-Score 0.1. RT FEMUR, TOTAL BMD 1.004 g/cm2 Young Adult T-Score 0.0 Age Matched Z-Score 0.9. RT NECK BMD 0.889 g/cm2 Young Adult T-Score -1.1 Age Matched Z-Score 0.1. IMPRESSION: There is normal bone density of the spine. There is low bone density of the left hip. There is low bone density of the right hip. The density of the spine has decreased 9.4% since the initial exam on March 19, 2012. The density of the spine decreased 5.3% since most recent exam on September 27, 2017. The density of the left hip has decreased 11.3% since initial exam on March 19, 2012. The density of the left hip has decreased 3.5% since most recent exam on September 27, 2017. The density of the right hip has decreased 4.1% since the initial exam on March 19, 2012. The density of the right hip has increased 0.4% since the most recent exam on September 27, 2017. FOLLOW-UP: Recommendation for the next bone density exam: 2 years. <Electronically signed by Blanco Rivas > 11/30/20 [id number]
== END ==
LOC: M WHC 10:33
PROVIDERS: ATTEND Family Medicine
DX: Z12.31 Encounter for screening mammogram for malignant neoplasm of breast (principal); Z86.018 Personal history of other benign neoplasm; Z92.0 Personal history of contraception; Z97.8 Presence of other specified devices; M85.851 Other specified disorders of bone density and structure, right thigh; M85.852 Other specified disorders of bone density and structure, left thigh

== ENCOUNTER 2020-12-31 10:20 | Emergency (ER) | payer MEDICARE ==
[~2020-12-31] VITALS: Ht 160 cm; Wt 87.7 kg
[2020-12-31] MEDS ORDERED: FAMOTIDINE INJ 20MG/2ML VIAL (S0028 PER 1) IVP ONE (11:30)
[2020-12-31] MEDS ORDERED: dexameTHASONE 20MG/5ML VIAL (J1100 PER 1MG) IV ONE (11:30)
[2020-12-31] MEDS ORDERED: diphenhydrAMINE 50MG/ML VIAL (J1200) IV ONE (11:30)
[2020-12-31] MEDS ORDERED: CHLO125TA PO (12:40)
[2020-12-31] MEDS ORDERED: RAMI1CAP24 PO (12:40)
[2020-12-31] MEDS ORDERED: FLUO40CA PO (12:40)
[2020-12-31 13:14] VITALS: BP 145/77
== END 2020-12-31 13:16 | disposition home or self-care (01) ==
LOC: M ED 10:20
DX: R09.89 Other specified symptoms and signs involving the circulatory and respiratory systems (principal); T45.3X5A Adverse effect of enzymes, initial encounter; X58.XXXA Exposure to other specified factors, initial encounter; Y92.89 Other specified places as the place of occurrence of the external cause; I50.32 Chronic diastolic (congestive) heart failure; I11.0 Hypertensive heart disease with heart failure; E78.5 Hyperlipidemia, unspecified; K21.9 Gastro-esophageal reflux disease without esophagitis; G47.33 Obstructive sleep apnea (adult) (pediatric); F41.9 Anxiety disorder, unspecified; Z99.89 Dependence on other enabling machines and devices; Z79.899 Other long term (current) drug therapy; Z79.82 Long term (current) use of aspirin; Z88.0 Allergy status to penicillin; Z88.8 Allergy status to other drugs, medicaments and biological substances; F17.210 Nicotine dependence, cigarettes, uncomplicated
CPT/HCPCS: 80047; 96374; 96375; 99284; J1100; J1200

== ENCOUNTER → 2021-01-03 | Outpatient (REF) | payer MEDICARE ==
[~2021-01-03] MED LIST changes: +CHLO125TA PO; +FLUO40CA PO; +RAMI1CAP24 PO
[2021-01-03 10:25] LABS: BASO # 0.1 10^3/uL (0.0-0.2); BASO % 0.9 % (0.0-1.0); EOS # 0.2 10^3/uL (0.0-0.5); EOS % 2.1 % (0.0-3.0); HEMATOCRIT 46.3 % (36.0-47.0); HEMOGLOBIN 15.2 g/dl (12.0-15.5); LYMPH # 3.2 10^3/uL (1.5-5.0); LYMPH % 41.7 % (24.0-44.0); MEAN CORPUSCULAR HEMOGLOBIN 28.8 pg (27.0-33.0); MEAN CORPUSCULAR HGB CONC 32.8 g/dl (32.0-36.5); MEAN CORPUSCULAR VOLUME 87.9 fl (80.0-96.0); MONO # 0.8 10^3/uL (0.0-0.8); MONO % 10.4 % (2.0-8.0); NEUTROPHILS # 3.4 10^3/uL (1.5-8.5); NEUTROPHILS % 44.6 % (36.0-66.0); PLATELET COUNT, AUTOMATED 324 10^3/uL (150-450); RED BLOOD COUNT 5.27 10^6/uL (4.00-5.40); WHITE BLOOD COUNT 7.6 10^3/uL (4.0-10.0)
[2021-01-03 10:54] LABS: ALBUMIN 3.7 GM/DL (3.2-5.2); ALT/SGPT 23 U/L (12-78); BILIRUBIN,TOTAL 0.5 MG/DL (0.2-1.0); BLOOD UREA NITROGEN 18 MG/DL (7-18); CALCIUM LEVEL 9.5 MG/DL (8.5-10.1); CARBON DIOXIDE LEVEL 31 MEQ/L (21-32); CHLORIDE LEVEL 96 MEQ/L (98-107); CREATININE FOR GFR 0.79 MG/DL (0.55-1.30); GLOMERULAR FILTRATION RATE > 60.0 (>51); GLUCOSE, FASTING 103 MG/DL (70-100); POTASSIUM SERUM 3.9 MEQ/L (3.5-5.1); SODIUM LEVEL 134 MEQ/L (136-145); TOTAL PROTEIN 7.5 GM/DL (6.4-8.2)
== END ==
LOC: M SFHCPLAZ 08:44
PROVIDERS: ATTEND Physician Assistant
DX: T78.40XA Allergy, unspecified, initial encounter (principal); R79.89 Other specified abnormal findings of blood chemistry; E87.6 Hypokalemia

== ENCOUNTER → 2021-03-09 | Outpatient (CLI) | payer MEDICARE ==
[~2021-03-09] MED LIST changes: +OMEP40CA4; +OMEP40CA4 PO; -OMEP40CA97; -OMEP40CA97 PO
[2021-03-09 15:35] LABS: BASO # 0.1 10^3/uL (0.0-0.2); BASO % 0.7 % (0.0-1.0); EOS # 0.1 10^3/uL (0.0-0.5); EOS % 1.1 % (0.0-3.0); HEMATOCRIT 43.7 % (36.0-47.0); HEMOGLOBIN 14.7 g/dl (12.0-15.5); LYMPH # 3.6 10^3/uL (1.5-5.0); LYMPH % 44.1 % (24.0-44.0); MEAN CORPUSCULAR HGB CONC 33.6 g/dl (32.0-36.5); MEAN CORPUSCULAR VOLUME 86.2 fl (80.0-96.0); MONO # 0.8 10^3/uL (0.0-0.8); MONO % 9.7 % (2.0-8.0); NEUTROPHILS # 3.6 10^3/uL (1.5-8.5); PLATELET COUNT, AUTOMATED 319 10^3/uL (150-450); RED BLOOD COUNT 5.07 10^6/uL (4.00-5.40); WHITE BLOOD COUNT 8.1 10^3/uL (4.0-10.0)
[2021-03-09 15:44] LABS: BLOOD UREA NITROGEN 19 MG/DL (7-18); CHLORIDE LEVEL 97 MEQ/L (98-107); CREATININE FOR GFR 0.61 MG/DL (0.55-1.30); GLOMERULAR FILTRATION RATE > 60.0 (>51); GLUCOSE, FASTING 81 MG/DL (70-100); POTASSIUM SERUM 3.5 MEQ/L (3.5-5.1); SODIUM LEVEL 132 MEQ/L (136-145)
[2021-03-09 15:45] LABS: ALBUMIN 3.9 GM/DL (3.2-5.2); ALT/SGPT 26 U/L (12-78); BILIRUBIN,TOTAL 0.4 MG/DL (0.2-1.0); C REACTIVE PROTEIN QUANTITATIV 0.66 MG/DL (0.00-0.30); CALCIUM LEVEL 9.5 MG/DL (8.5-10.1); CARBON DIOXIDE LEVEL 28 MEQ/L (21-32); CHOLESTEROL LEVEL 243 MG/DL (<200); FERRITIN 21 NG/ML (8-252); HDL CHOLESTEROL 50 MG/DL (>40); LDL CHOLESTEROL 156 MG/DL (<100); NON-HDL-C 193 MG/DL; NT-PRO BNP 10 PG/ML (<125); TOTAL PROTEIN 7.6 GM/DL (6.4-8.2); TRIGLYCERIDES LEVEL 187 MG/DL (<150); TROPONIN I < 0.02 NG/ML (< 0.10)
[2021-03-09 15:54] LABS: HEMOGLOBIN A1c 5.8 %
== END ==
LOC: M PLALAB 13:54
PROVIDERS: ATTEND Family Medicine
DX: R73.01 Impaired fasting glucose (principal); I10 Essential (primary) hypertension; D50.9 Iron deficiency anemia, unspecified
CPT/HCPCS: 36415; 80053; 80061; 82728; 83036; 83525; 83880; 84484; 85025; 86140; 93005; G0463

== ENCOUNTER → 2021-10-09 | Outpatient (CLI) | payer MEDICARE ==
[~2021-10-09] MED LIST changes: -CEFD1CAP8; +CEFD300C41; +LOSA100T45; -LOSA100T50
[2021-10-09 10:47] LABS: BASO # 0.1 10^3/uL (0.0-0.2); EOS # 0.1 10^3/uL (0.0-0.5); HEMATOCRIT 41.5 % (36.0-47.0); LYMPH # 3.5 10^3/uL (1.5-5.0); LYMPH % 50.1 % (24.0-44.0); MEAN CORPUSCULAR HEMOGLOBIN 29.7 pg (27.0-33.0); MEAN CORPUSCULAR HGB CONC 33.7 g/dl (32.0-36.5); MEAN CORPUSCULAR VOLUME 87.9 fl (80.0-96.0); MONO # 0.7 10^3/uL (0.0-0.8); MONO % 10.5 % (2.0-8.0); NEUTROPHILS # 2.5 10^3/uL (1.5-8.5); NEUTROPHILS % 36.1 % (36.0-66.0); PLATELET COUNT, AUTOMATED 316 10^3/uL (150-450); RED BLOOD COUNT 4.72 10^6/uL (4.00-5.40)
[2021-10-09 11:10] LABS: HEMOGLOBIN A1c 5.6 %
[2021-10-09 11:14] LABS: ALBUMIN 3.7 GM/DL (3.2-5.2); ALT/SGPT 26 U/L (12-78); BILIRUBIN,TOTAL 0.4 MG/DL (0.2-1.0); BLOOD UREA NITROGEN 20 MG/DL (7-18); CALCIUM LEVEL 9.1 MG/DL (8.8-10.2); CARBON DIOXIDE LEVEL 26 MEQ/L (21-32); CHLORIDE LEVEL 99 MEQ/L (98-107); CHOLESTEROL LEVEL 171 MG/DL (<200); FERRITIN 19 NG/ML (8-252); GLOMERULAR FILTRATION RATE > 60.0 (>45); GLUCOSE, FASTING 110 MG/DL (70-100); HDL CHOLESTEROL 65 MG/DL (>40); LDL CHOLESTEROL 94 MG/DL (<100); NON-HDL-C 106 MG/DL; NT-PRO BNP 10 PG/ML (<125); SODIUM LEVEL 133 MEQ/L (136-145); TOTAL PROTEIN 7.4 GM/DL (6.4-8.2); TRIGLYCERIDES LEVEL 61 MG/DL (<150)
[2021-10-09 12:42] LABS: PTH INTACT 72.3 PG/ML (18.5-88.0)
== END ==
LOC: M PLALAB 09:24
PROVIDERS: ATTEND Family Medicine
DX: E55.9 Vitamin D deficiency, unspecified (principal); E78.5 Hyperlipidemia, unspecified; I10 Essential (primary) hypertension; D50.9 Iron deficiency anemia, unspecified; Z79.899 Other long term (current) drug therapy

== ENCOUNTER → 2021-10-26 | Outpatient (CLI) | payer MEDICARE | LOC: M PLALAB 14:59 | PROVIDERS: ATTEND Physician Assistant | DX: R12 Heartburn (principal) ==

== ENCOUNTER → 2021-11-21 | Outpatient (CLI) | payer MEDICARE | LOC: M CARPUL 09:15 | PROVIDERS: ATTEND Physician Assistant | DX: R12 Heartburn (principal); R07.89 Other chest pain; I35.8 Other nonrheumatic aortic valve disorders ==

== ENCOUNTER 2025-01-22 10:53 | Outpatient (CLI) | payer MEDICARE, OTHER ==
[~2025-01-22] VITALS: Ht 162.6 cm; Wt 106.8 kg
[~2025-01-22 10:53] MED LIST changes: +CEFD1CAP9; -CEFD300C41; +ENAL1TAB52; +ENAL1TAB52 PO; -ENAL20TA11; -ENAL20TA11 PO; +FLUO-365; -FLUO20CA22; -LOSA100T45; +LOSA100T46; -RAMI1CAP24 PO; +RAMI5CAP60 PO
[2025-01-22 11:00] VITALS: BP 160/89; O2SAT 97
[2025-01-22] MEDS: NS IV ONE (11:48)
[2025-01-22] MEDS: GUSELKUMAB IV ONE (11:48)
[2025-01-22 11:50] VITALS: BP 122/68; O2SAT 96
== END 2025-01-22 13:15 | disposition home or self-care (01) ==
LOC: M INFU 10:53
PROVIDERS: ATTEND Internal Medicine Gastroenterology
DX: K51.919 Ulcerative colitis, unspecified with unspecified complications (principal); Z88.0 Allergy status to penicillin; Z88.8 Allergy status to other drugs, medicaments and biological substances
CPT/HCPCS: 96365; J1628

== ENCOUNTER → 2025-06-07 | Outpatient (CLI) | payer OTHER ==
[2025-06-07 15:51] LABS: BASO # 0.1 10^3/uL (0.0-0.2); BASO % 1.0 % (0.0-1.0); EOS # 0.2 10^3/uL (0.0-0.5); EOS % 2.4 % (0.0-3.0); LYMPH # 4.3 10^3/uL (1.5-5.0); LYMPH % 52.7 % (24.0-44.0); MONO # 0.7 10^3/uL (0.0-0.8); MONO % 8.8 % (2.0-8.0); NEUTROPHILS # 2.9 10^3/uL (1.5-8.5); NEUTROPHILS % 35.0 % (36.0-66.0); PLATELET COUNT, AUTOMATED 265 10^3/uL (150-450)
[2025-06-07 16:04] LABS: ESTIMATED AVERAGE GLUCOSE 131.0 MG/DL (60-110)
[2025-06-07 16:18] LABS: CREATININE, URINE 60.6 MG/DL
[2025-06-07 16:19] LABS: MALB URINE SIEMENS < 3.0 MG/L
[2025-06-07 16:21] LABS: ALT/SGPT 28 U/L (7.0-40); AST/SGOT 23 U/L (<34); CALCIUM LEVEL 9.1 MG/DL (8.3-10.6); CARBON DIOXIDE LEVEL 25 MMOL/L (20-31); CHLORIDE LEVEL 103 MMOL/L (98-107); CREATININE FOR GFR 0.70 MG/DL (0.55-1.30); GLOMERULAR FILTRATION RATE > 90.0 (>45); POTASSIUM SERUM 4.2 MMOL/L (3.5-5.1); SODIUM LEVEL 137 MMOL/L (136-145)
[2025-06-07 16:23] LABS: VITAMIN B12 LEVEL 386 PG/ML (211-911)
[2025-06-15 16:23] LABS: ALPHA 2-MACROGLOBULINS,QN 284 mg/dL (106-279); ALT (SGPT) P5P 19 U/L (6-29); APOLIPOPROTEIN A-1 141 mg/dL (101-198); FIBROSIS SCORE 0.33; FIBROSIS STAGE MINIMAL FIBROSIS (F0); GGT 36 U/L (3-65); HAPTOGLOBIN 187 mg/dL (43-212); NECROINFLAM ACT GRADE NO ACTIVITY (A0); NECROINFLAM ACT SCORE 0.08
== END ==
LOC: M PLALAB 13:36
PROVIDERS: ATTEND Family Medicine
DX: I10 Essential (primary) hypertension (principal); D50.9 Iron deficiency anemia, unspecified; R73.01 Impaired fasting glucose; E53.8 Deficiency of other specified B group vitamins; K51.20 Ulcerative (chronic) proctitis without complications; K76.0 Fatty (change of) liver, not elsewhere classified